=== PATIENT | female | born 1965 | race Caucasian/White ===

== ENCOUNTER 2018-02-28 01:04 | Outpatient (CLI) | payer BC, SELFPAY ==
--- NOTE | 2018-02-28 12:43 | DI.MAMMO_ITS ---
SYMPTOMS/DIAGNOSIS: SCREENING, Z12.31, PREVENTATIVE CARE, Z00.00 MAMMOGRAM: Mammograms were interpreted according to the usual protocol including computer analysis with CAD system, tomosynthesis and C view imaging. The breast tissue is heterogeneously radiodense which lowers the sensitivity of the study. There is no dominant mass. There are no suspicious calcifications and a biopsy marker clip is identified in the superior portion of the right breast. SUMMARY: No evidence of malignancy, Category I, yearly screening mammography is recommended. Breast density Category C. SA ASSESSMENT OF FINDINGS: Negative. Category 1. Patient will receive a letter notifying them of these results. Bi-RADS category C. The breasts are heterogeneously dense, which may obscure small masses.
== END 2018-02-28 01:24 ==
PROVIDERS: PCP Family Medicine; Visit Provider Family Medicine
DX: Z00.00 Encounter for general adult medical examination without abnormal findings (principal); Z12.31 Encounter for screening mammogram for malignant neoplasm of breast
CPT/HCPCS: 77063; 77067

== ENCOUNTER 2018-04-10 08:28 | Outpatient (REF) | payer BC, SELFPAY ==
[2018-04-10 13:38] LABS: ALT 18 U/L (12-78); AST 17 U/L (15-37); Albumin 3.9 g/dL (3.4-5.0); Alkaline Phosphatase 65 U/L (46-116); Anion Gap 7.7 mmol/L (3-11); BUN 18 mg/dL (7-18); Bilirubin, Total 0.4 mg/dL (0.2-1.0); CO2 29.3 mmol/L (21.0-32.0); CREATININE 0.82 mg/dL (0.55-1.02); Calcium 9.6 mg/dL (8.5-10.1); Chloride 103 mmol/L (98-107); Cholesterol 221 mg/dL (50-200); Glucose 91 mg/dL (70-100); HDL Cholesterol 65 mg/dL (40-60); LDL CHOLESTEROL 139 mg/dL (<100); Potassium 4.7 mmol/L (3.5-5.1); Sodium 140 mmol/L (136-145); TSH (W/Ref FT4) 3.99 uIU/mL (0.358-3.74); Total Protein 7.1 g/dL (6.4-8.2); Triglyceride 62 mg/dL (30-150)
[2018-04-10 13:57] LABS: FREE T4 0.97 ng/dL (0.76-1.46)
== END 2018-04-10 08:48 ==
LOC: NCHCN 08:28
PROVIDERS: PCP Family Medicine; Visit Provider Family Medicine
DX: Z00.00 Encounter for general adult medical examination without abnormal findings (principal); Z13.29 Encounter for screening for other suspected endocrine disorder; Z13.228 Encounter for screening for other metabolic disorders; Z13.220 Encounter for screening for lipoid disorders
CPT/HCPCS: 80053; 80061; 83721; 84439; 84443

== ENCOUNTER 2018-06-25 06:18 | Day surgery (SDC) | payer BC, SELFPAY ==
--- NOTE | 2018-06-25 06:00 | W.COLOREPORT ---
Date of service: 06/25/18 Time of Service: 07:25 Colonoscopy Report Date of procedure: 06/25/18 Pre-op diagnosis general: Colon Cancer Screening Post-op diagnosis procedure note: other (colorectal polyps) Procedure: Colonoscopy with polypectomy by cold forceps Surgeon: Meri Hartmann Anesthesia proc note operative: MAC (Jessy Burgess, AARTI/ ASA 2) Estimated blood loss (mL): 3 Pathology: other (descending polyp at 25cm, rectal polyp) Complications: None Disposition: same day Indications: Mrs. Ruiz is a pleasant 53 year old female who was seen in the office for a screening colonoscopy. She had a colonoscopy in 2008 that was normal. Risks, benefits and complications have been reviewed. Complications include but are not limited to bleeding, pain, perforation, missed small lesion/polyp, sore throat, aspiration and adverse reaction to the medications. Questions were entertained and answered to their satisfaction and they wished to proceed. No guarantees were given or implied. Prep: Miralax/Dulcolax Procedure Start Time: :25 Procedure End Time: :52 Retraction Time: 20 minutes Findings: 2 sessile polyps identified Procedure Description: After informed consent was obtained the patient was taken to the procedure room and placed in a left decubitous position. Monitors were applied and a time out was done. The patients name, date of , procedure, allergies to medications and metal in their body was reviewed. The patient was then sedated. Once sedated and comfortable a rectal exam was done. External exam was normal. Internal exam revealed a normal sphincter tone and no palpable masses. The scope was then introduced and retro-flexed. No internal hemorrhoids were identified. The scope was then advanced to the cecum without difficulty. The TI and appendiceal orifice were identified. The prep was good. The scope was then slowly retracted over 20 minutes back into the rectum. Polyps were removed in the descending colon at 25 cm and in the sigmoid colon with cold forceps. The scope was removed and the patient was woken up and taken back to Same day surgery in stable condition. The patient tolerated the procedure well and there were no immediate complications. Follow up: The patient should follow up in 3-5 years unless they develop changes in bowel habits or other new gastrointestinal complaints.
--- NOTE | 2018-06-25 06:01 | W.PM.DSUDISC ---
Discharge Plan Disposition Patient Disposition: HOME Condition: Good Discharge Details Reason For Visit: Colon Cancer Screening Attending Provider: Meri Hartmann Primary Care Provider: Savana Oakes Home Meds and New Rx's Prescriptions: Discontinued polyethylene glycol 3350 17 gram/dose powder 255 g PO ONCE Qty: 255 RF: 0 bisacodyl [Dulcolax (bisacodyl)] 5 mg tablet,delayed release (DR/EC) 5 mg PO ONCE Qty: 4 RF: 0 Discharge Instructions Instructions: Colonoscopy (DC), Colorectal Polyps (DC) Additional Instructions: Findings: 2 polyps Follow up: 3-5 years Please call if you develop: fevers >101.5 Nausea or Vomiting Abdominal pain that is not transient DAY SURGERY UNIT POST COLONOSCOPY INSTRUCTIONS 1. Because there will be medication in your system for the next 24 hours, you may feel a little sleepy. Your coordination will be affected. Therefore: a. Do not drive or operate dangerous equipment for 24 hours. b. Do not drink alcohol beverages for 24 hours (not even beer). c. Plan to go home and rest for the day. 2. Generally there are no restrictions on your activity after a day or so has gone by, but you may feel a bit fatigued for a few days. 3 After you arrive home you may have a light meal and return to a normal diet as you can tolerate it without feeling sick to your stomach. 4. After surgery, you may feel pain or discomfort. This should be only transient, but if it persists please contact your doctor. 5. If there are any questions regarding the findings of your procedure, please feel free to contact your doctor. 6. If you are unable to contact your doctor with a problem, contact the hospital at [phone]. 7. Continue all your regular medications unless directed otherwise. I understand the above instructions and have no questions. Signature of Patient or Responsible Adult Escort Date/Time Name of Responsible Adult Escort Signature of Nurse Date/Time Stand Alone Forms: Anthony Alonso (DSU) Activity:: Activity as Tolerated Diet:: As Tolerated Discharge Orders Discharge Orders: Discharge Order (Routine); Ordered 06/25/18 Ordered By: Meri Hartmann DS: Diagnosis Discharge Diagnosis (1) S/P colonoscopy: Status: Acute (2) Colorectal polyps: Status: Acute
--- NOTE | 2018-06-25 06:03 | HPE_ITS ---
Date of service: 06/25/18 Time of Service: 06:30 Assessment and Plan (1) Encounter for screening colonoscopy: Current visit: No Status: Acute P\\ Colonoscopy under sedation Risks, benefits and complications have been reviewed. Complications include but are not limited to bleeding, pain, perforation, missed small lesion/polyp, sore throat, aspiration and adverse reaction to the medications. Questions were entertained and answered to their satisfaction and they wished to proceed. No guarantees were given or implied. History of Present Illness Narrative: 53 y/o female with history of constipation and hypothyrodism presents for colonoscopy screening pre-op. Her last screening was in 2008, which was remarkable for diverticula. She denies a family history of colon cancer. She denies changes in her bowel habits stating that she has always had hard stools with intermittent constipation with tenesmus. In the past, she thought she may have hemorrhoids. Denies bloody or black tarry stools, abdominal pain, diarrhea or constipation. She denies constitutional symptoms. Denies use of marijuana or any other recreational or illegal drugs. She denies chest pain, palpitations, dyspnea or dyspnea with exertion. She denies prior history or family history of adverse reactions or complications with anesthesia. No changes in her health since she was last seen in the office. Review of Systems Constitutional Denies fever(s) Cardiovascular Denies chest pain, Denies chest pain at rest, Denies rapid heart rate, Denies irregular heart rhythm, Denies palpitations, Denies dyspnea and Denies dyspnea on exertion Respiratory Denies cough, Denies dyspnea and Denies dyspnea on exertion Endocrine Denies palpitations [facility] Medical History Tobacco abuse (Chronic) Hypothyroidism (Chronic) Fatigue (Chronic) Constipation (Chronic) Surgical History S/P colonoscopy (Acute ~06/25/18) H/O colonoscopy (Resolved 05/28/08) Social History Smoking and Tabacco status: Current every day alcohol intake: current alcohol intake frequency: a few times a week Alcohol type: wine and hard liquor substance use type: does not use Meds Home Medications Medication Instructions Recorded Confirmed Type bisacodyl 5 mg tablet,delayed 5 mg PO ONCE #4 tab 05/24/18 06/25/18 Rx release polyethylene glycol 3350 17 255 g PO ONCE #255 gm 05/24/18 06/25/18 Rx gram/dose oral powder Allergies Allergy/AdvReac Type Severity Reaction Status Date / Time No Known Allergies Allergy Verified 06/25/18 06:30 Exam Resp Effort & Inspection: normal respiratory effort Auscultation: clear to auscultation bilaterally Cardio Palpation: normal PMI Rate: regular rate Rhythm: regular rhythm Heart Sounds: no click, no gallops and no murmurs
[2018-06-25 06:25] VITALS: BP 120/81; PULSE 91; RESP 16; TEMP 36.9; O2SAT 95
[2018-06-25] MEDS: Lactated Ringers 1,000 ML 80 ML IV (06:47)
--- NOTE | 2018-06-25 07:45 | BOWEL_PTH ---
PATIENT: Denisse Ruiz LOC: [facility] U#:[id number] AGE/SX: 53/F ROOM: RE06/25/[address]: Meri Hartmann MD : 1965 BED: DIS: 06/25/2018 SPEC #: [id number] RECD: 06/25/18 12:38 STATUS: OSCAR REQ #: [id number] STEVEN: 06/25/18 07:[address]: Meri Hartmann DEPT: Surgical Specimen RECD BY: Ellyn Whittington ENTERED: 06/25/18 12:40 SP TYPE: Bowel OTHR DR: Savana Oakes Tissues: 1 - BIOPSY BOWEL 2 - BIOPSY BOWEL Procedures: GROSS AND MICRO LEVEL 4 Comments: [id number]
[2018-06-25 08:41] VITALS: BP 142/93; PULSE 56; RESP 18; TEMP 36.1; O2SAT 99
== END 2018-06-25 09:27 | disposition home or self-care (01) ==
LOC: SUR 06:18
PROVIDERS: PCP Family Medicine; Visit Provider Surgery
PROC: 0DJD8ZZ Inspection of Lower Intestinal Tract, Via Natural or Artificial Opening Endoscopic (ICD-10-PCS; CPT 45378; principal; 2018-06-25 07:30)
DX: Z12.11 Encounter for screening for malignant neoplasm of colon (principal); D12.4 Benign neoplasm of descending colon; K63.5 Polyp of colon; F17.210 Nicotine dependence, cigarettes, uncomplicated
CPT/HCPCS: 45380; 88305; NC

== ENCOUNTER 2019-04-15 16:05 | Outpatient (REF) | payer BC, SELFPAY ==
[2019-04-15 21:13] LABS: ALT 20 U/L (14-59); AST 16 U/L (15-37); Albumin 4.3 g/dL (3.4-5.0); Alkaline Phosphatase 92 U/L (46-116); Anion Gap 9.3 mmol/L (3-11); BUN 17 mg/dL (7-18); Bilirubin, Total 0.3 mg/dL (0.2-1.0); CO2 29.7 mmol/L (21.0-32.0); Calcium 9.7 mg/dL (8.5-10.1); Calculated LDL 136 mg/dL; Chloride 103 mmol/L (98-107); Cholesterol 236 mg/dL (<200); Estimated GFR 58.22 (mL/min/1.73m2); Glucose 112 mg/dL (74-106); HDL Cholesterol 78 mg/dL (40-60); Potassium 3.7 mmol/L (3.5-5.1); Sodium 142 mmol/L (136-145); Total Protein 7.9 g/dL (6.4-8.2); Triglyceride 111 mg/dL (<150)
[2019-04-15 21:28] LABS: HGB 14.7 g/dL (12.0-15.5); Mean Corp. HGB Concentration 33.4 g/dL (32.0-36.0); Mean Corpuscular Hemoglobin 31.5 pg (27.0-33.0); Mean Corpuscular Volume 94.2 fL (80-95); Mean Platelet Volume 10.6 fL (8.0-11.0); Platelet Count 284 x1000/uL (130-400); RBC 4.67 m/cumm (4.00-5.20); RBC Distribution Width 13.3 % (11.7-14.6)
== END 2019-04-15 16:25 ==
LOC: NCHCN 16:05
PROVIDERS: PCP Family Medicine; Visit Provider Family Medicine
DX: R10.9 Unspecified abdominal pain (principal)
CPT/HCPCS: 80053; 80061; 85027

== ENCOUNTER 2019-05-21 01:21 | Outpatient (CLI) | payer BC, SELFPAY ==
--- NOTE | 2019-05-21 12:59 | DI.MAMMO_ITS ---
EXAM: MAMMO SCREENING CLINICAL HISTORY: SCREENING, Z12.31 TECHNIQUE: Mammograms were interpreted according to the usual protocol including computer analysis w [employer] CAD system, tomosynthesis and C-view imaging. COMPARISON: [id number] FINDINGS: The breasts are composed of heterogeneously dense fibroglandular densities, Breast Density category C . No suspicious masses or suspicious microcalcifications are seen. No skin thickening or abnormal axillary lymph nodes are seen. There has been no significant change from prior exams. IMPRESSION: BIRADS Category 1, negative mammogram. Yearly screening mammography is recommended. BI-RADS Cat 1 - Negative Breast Density - Category B - Scattered areas of fibroglandular densityBreast Density - Category C - Heterogeneously dense BREAST DENSITY: The mammogram demonstrates the patient's breast tissue is dense. Dense breast tissue is very common and is not abnormal but dense breast tissue can make it harder to find cancer on a ma mmogram. Also, dense breast tissue may increase their breast cancer risk. This information about the result of the mammogram report was provided to the patient to raise their awareness. Use this report when you speak with the patient about their risks for breast cancer, which includes their family hist ory. At that time, you may recommend for more screening tests (Ultrasound or MRI) as they might be us eful based on their risk. A negative radiographic report should not delay biopsy if a dominant or clinically suspicious mass is present. Up to ten percent of cancers are not identified on mammography. A negative report may reinforce clinical impression. Adenosis and dense breasts may obscure an underlying neoplasm. False positive reports average 6 to 10%.
== END 2019-05-21 01:41 ==
PROVIDERS: PCP Family Medicine; Visit Provider Family Medicine
DX: Z12.31 Encounter for screening mammogram for malignant neoplasm of breast (principal)
CPT/HCPCS: 77063; 77067

== ENCOUNTER 2020-04-16 16:16 | Outpatient (REF) | payer BC, SELFPAY ==
--- NOTE | 2020-04-16 15:30 | PAPFT_PTH ---
PATIENT: Denisse Ruiz LOC: [facility] U#:[id number] AGE/SX: 55/F ROOM: RE04/16/[address]: Savana Oakes : 1965 BED: DIS: 04/16/2020 SPEC #: [id number] RECD: 04/17/20 12:45 STATUS: OSCAR REMartha #: [id number] STEVEN: 04/16/20 15:[address]: Savana Oakes DEPT: [facility], [facility] Cytology RECD BY: Ellyn Whittington Tissues: 1 - CX/ENDOCX FOR PAP SMEARS Procedures: PAP THIN PREP/UVM Screening Comments: [id number]
== END 2020-04-16 16:36 ==
LOC: NCHCN 16:16
PROVIDERS: PCP Family Medicine; Visit Provider Family Medicine
DX: Z12.4 Encounter for screening for malignant neoplasm of cervix (principal); R87.613 High grade squamous intraepithelial lesion on cytologic smear of cervix (HGSIL)
CPT/HCPCS: 88142

== ENCOUNTER 2020-05-18 09:04 | Outpatient (REF) | payer BC, SELFPAY ==
--- NOTE | 2020-05-18 08:30 | CER_PTH ---
PATIENT: Denisse Ruiz LOC: [facility] U#:[id number] AGE/SX: 55/F ROOM: RE05/18/[address]: Cecile Vogel DO : 1965 BED: DIS: 05/18/2020 SPEC #: [id number] RECD: 05/18/20 12:42 STATUS: OSCAR REQ #: [id number] STEVEN: 05/18/20 08:[address]: Cecile Vogel DEPT: Surgical Specimen RECD BY: Ellyn Whittington ENTERED: 05/18/20 12:44 SP TYPE: CER OTHR DR: Savana Oakes Tissues: 1 - CERVICAL BIOPSY 2 - ENDOCERVICAL BX/CURRETTE Procedures: GROSS AND MICRO LEVEL 4 Comments: [id number]
== END 2020-05-18 09:24 ==
LOC: LBN 09:04
PROVIDERS: PCP Family Medicine; Visit Provider Obstetrics & Gynecology
DX: N88.8 Other specified noninflammatory disorders of cervix uteri (principal); R87.613 High grade squamous intraepithelial lesion on cytologic smear of cervix (HGSIL)
CPT/HCPCS: 88305

== ENCOUNTER 2020-05-26 01:01 | Outpatient (CLI) | payer BC, SELFPAY ==
--- NOTE | 2020-05-26 12:20 | DI.MAMMO_ITS ---
EXAM: MAMMO SCREENING CLINICAL HISTORY: SCREENING, Z12.31 TECHNIQUE: Mammograms were interpreted according to the usual protocol including computer analysis w [employer] CAD system, tomosynthesis and C-view imaging. COMPARISON: 2012 through 2019 FINDINGS: The breasts are composed of heterogeneously dense fibroglandular densities, Breast Density category C . No suspicious masses or suspicious microcalcifications are seen. No skin thickening or abnormal axillary lymph nodes are seen. A biopsy marker clip is again noted in the superior right breast. There has been no significant change from prior exams. IMPRESSION: BI-RADS Category 1, Negative mammogram. Yearly screening mammography is recommended. Breast Density Category C, heterogeneously Dense. The mammogram demonstrates the patient's breast tissue is dense. Dense breast tissue is very common a nd is not abnormal but dense breast tissue can make it harder to find cancer on a mammogram. Also, de nse breast tissue may increase breast cancer risk. This information about the result of the mammogram report was provided to the patient to raise their awareness. Use this report when you speak with the patient about their risks for breast cancer, which includes their family history. At that time, you may recommend additional screening tests (Ultrasound or MRI) as they might be useful based on their r isk. A negative radiographic report should not delay biopsy if a dominant or clinically suspicious mass is present. Up to ten percent of cancers are not identified on mammography. A negative report may reinforce clinical impression. Adenosis and dense breasts may obscure an underlying neoplasm. False positive reports average 6 to 10%.
== END 2020-05-26 01:21 ==
PROVIDERS: PCP Family Medicine; Visit Provider Family Medicine
DX: Z12.31 Encounter for screening mammogram for malignant neoplasm of breast (principal)
CPT/HCPCS: 77063; 77067

== ENCOUNTER 2020-11-09 08:41 | Outpatient (REF) | payer BC, SELFPAY ==
--- NOTE | 2020-11-09 08:30 | PAPFT_PTH ---
PATIENT: Denisse Ruiz LOC: [facility] U#:[id number] AGE/SX: 55/F ROOM: RE11/09/[address]: Cecile Vogel DO : 1965 BED: DIS: 11/09/2020 SPEC #: [id number] RECD: 11/09/20 13:13 STATUS: OSCAR REQ #: [id number] STEVEN: 11/09/20 08:[address]: Cecile Vogel DEPT: [facility] Cytology RECD BY: Ellyn Whittington ENTERED: 11/09/20 13:13 SP TYPE: PAPFT OTHR DR: Savana Oakes Tissues: 1 - CX/ENDOCX FOR PAP SMEARS Procedures: PAP THIN PREP/UVM Screening HPV DNA PROBE Comments: [id number]
--- NOTE | 2020-11-09 08:30 | ENDO_PTH ---
PATIENT: Denisse Ruiz LOC: [facility] U#:[id number] AGE/SX: 55/F ROOM: RE11/09/[address]: Cecile Vogel DO : 1965 BED: DIS: 11/09/2020 SPEC #: [id number] RECD: 11/09/20 12:55 STATUS: OSCAR REQ #: [id number] STEVEN: 11/09/20 08:[address]: Cecile Vogel DEPT: Surgical Specimen RECD BY: Ellyn Whittington ENTERED: 11/09/20 12:56 SP TYPE: Endo OTHR DR: Savana Oakes Tissues: 1 - ENDOCERVICAL BX/CURRETTE Procedures: GROSS AND MICRO LEVEL 4 Comments: [id number]
== END 2020-11-09 08:42 | disposition home or self-care (01) ==
LOC: LBN 08:41
PROVIDERS: PCP Family Medicine; Visit Provider Obstetrics & Gynecology
DX: N88.8 Other specified noninflammatory disorders of cervix uteri (principal); R87.810 Cervical high risk human papillomavirus (HPV) DNA test positive; R87.613 High grade squamous intraepithelial lesion on cytologic smear of cervix (HGSIL); Z12.4 Encounter for screening for malignant neoplasm of cervix
CPT/HCPCS: 88142; 88305; 87624

== ENCOUNTER 2022-02-04 13:04 | Outpatient (REF) | payer BC, SELFPAY ==
--- NOTE | 2022-02-04 11:10 | PAPFT_PTH ---
PATIENT: Denisse Ruiz LOC: [facility] U#:[id number] AGE/SX: 57/F ROOM: RE02/04/[address]: Cecile Vogel DO : 1965 BED: DIS: 02/04/2022 SPEC #: [id number] RECD: 02/04/22 13:18 STATUS: OSCAR REQ #: [id number] STEVEN: 02/04/22 11:[address]: Cecile Vogel DEPT: [facility] Cytology RECD BY: Ellyn Whittington ENTERED: 02/04/22 13:18 SP TYPE: PAPFT OTHR DR: Savana Oakes Tissues: 1 - CX/ENDOCX FOR PAP SMEARS Procedures: PAP THIN PREP/UVM Screening HPV DNA PROBE Comments: [id number]
== END 2022-02-04 13:05 | disposition home or self-care (01) ==
LOC: LBN 13:04
PROVIDERS: PCP Family Medicine; Visit Provider Obstetrics & Gynecology
DX: Z12.4 Encounter for screening for malignant neoplasm of cervix (principal); Z11.51 Encounter for screening for human papillomavirus (HPV)
CPT/HCPCS: 88142; 87624

== ENCOUNTER 2022-05-27 00:27 | Outpatient (CLI) | payer BC, SELFPAY ==
--- NOTE | 2022-05-27 11:45 | DI.MAMMO_ITS ---
Exam(s) MAMMO SCREENING EXAM: MAMMO SCREENING CLINICAL HISTORY: screening TECHNIQUE: Bilateral full field digital CC and MLO mammographic images were obtained with 3D tomosyn thesis and utilizing computer aided detection (CAD). COMPARISON: Available for comparison. FINDINGS: Masses/Architectural Distortion: None seen. Microcalcifications: No suspicious pleomorphic-type are seen. Skin Thickening/Nipple Retraction: None. IMPRESSION: 1. No significant interval change with no specific features of malignancy noted. 2. Unless there is more urgent need, screening mammography is recommended, as per [employer] guidelines. BI-RADS Category 1 - Negative Breast Density - Category C - Heterogeneously dense Breast density category C or D implies that the patient has dense breast tissue. Dense breast tissue is very common and is not abnormal but dense breast tissue can make it harder to find cancer on a ma mmogram. Also, dense breast tissue may increase their breast cancer risk. This information about the result of the mammogram report was provided to the patient to raise their awareness. Use this report when you speak with the patient about their risks for breast cancer, which includes their family hist ory. At that time, you may recommend for more screening tests (Ultrasound or MRI) as they might be us eful based on their risk. A negative radiographic report should not delay biopsy if a dominant or clinically suspicious mass is present. Up to ten percent of cancers are not identified on mammography. A negative report may reinforce clinical impression. Adenosis and dense breasts may obscure an underlying neoplasm. False positive reports average 6 to 10%. Patient will receive a letter notifying them of these results.
== END 2022-05-27 00:47 ==
LOC: DI 00:28
PROVIDERS: PCP Family Medicine; Visit Provider Obstetrics & Gynecology
DX: Z12.31 Encounter for screening mammogram for malignant neoplasm of breast (principal); R92.8 Other abnormal and inconclusive findings on diagnostic imaging of breast
CPT/HCPCS: 77063; 77067

== ENCOUNTER 2022-11-08 11:25 | Outpatient (REF) | payer BC, SELFPAY ==
[2022-11-08 22:22] LABS: ALT 24 U/L (14-59); AST 18 U/L (15-37); Albumin 3.9 g/dL (3.4-5.0); Alkaline Phosphatase 75 U/L (46-116); Anion Gap 8.7 mmol/L (3-11); BUN 17 mg/dL (7-18); Bilirubin, Total 0.4 mg/dL (0.2-1.0); CO2 29.3 mmol/L (21.0-32.0); CREATININE 0.8 mg/dL (0.55-1.02); Calcium 9.3 mg/dL (8.5-10.1); Calculated LDL 107 mg/dL (<100); Chloride 105 mmol/L (98-107); Cholesterol 176 mg/dL (<200); Estimated GFR 86.96 (mL/min/1.73m2); Glucose 99 mg/dL (74-106); HDL Cholesterol 56 mg/dL (40-60); Potassium 5.1 mmol/L (3.5-5.1); Sodium 143 mmol/L (136-145); Total Protein 7.1 g/dL (6.4-8.2); Triglyceride 68 mg/dL (<150)
[2022-11-08 22:44] LABS: Vitamin D 25 Total 35.6 ng/mL (30-100)
== END 2022-11-08 11:26 | disposition home or self-care (01) ==
LOC: NCHCN 11:25
PROVIDERS: PCP Family Medicine; Visit Provider Family Medicine
DX: Z00.00 Encounter for general adult medical examination without abnormal findings (principal)
CPT/HCPCS: 80053; 80061; 82306

== ENCOUNTER → 2023-01-04 01:52 | Outpatient (CLI) | payer BC, SELFPAY ==
--- NOTE | 2023-01-04 | DI.US_ITS ---
APPROVED REPORT EXAM: Comprehensive 2D, Doppler, and color-flow Echocardiogram Patient Location: Out-Patient Diving Judge: Rhea Marti RDCS (AE) Indications: Heart Murmur Other Information Study Quality: Good Conclusion Normal left ventricular wall thickness and chamber size. Ejection fraction is 60 to 65%. Wall motio n is normal Normal right ventricular size and systolic function Both atria are normal in size Aortic valve is trileaflet and sclerotic with mild regurgitation. There is no aortic stenosis Wall motion Left Ventricle The left ventricle is normal size. The left ventricular systolic function is normal. The left ventric ular ejection fraction is within the normal range. There is normal left ventricular wall thickness. T here is normal LV segmental wall motion. There is no ventricular septal defect visualized. LVEF is 60 -65%. Right Ventricle The right ventricle is normal size. The right ventricular systolic function is normal. Atria The left atrium size is normal. The right atrium size is normal. The interatrial septum is intact wit h no evidence for an atrial septal defect. Aortic Valve The Aortic valve is sclerotic. There is no aortic valvular stenosis. Mild aortic regurgitation. Mitral Valve The mitral valve is normal in structure. No evidence of mitral valve stenosis. Trace mitral regurgita tion. Tricuspid Valve The tricuspid valve is normal in structure. There is no tricuspid valve stenosis. Trace to mild tricu spid regurgitation. The RVSP is 22.7 mmHg. Pulmonic Valve The pulmonary valve is normal in structure. There is no pulmonic valvular stenosis. There is no pulmo ashanti valvular regurgitation. Great Vessels The aortic root is normal in size. The ascending aorta is normal in size. Aortic arch is normal in ca liber. IVC is normal in size and collapses >50% with inspiration. Pericardium There is no pericardial effusion. 2D Dimensions IVSD d PLAX 0.99 cm F: 0.6-1.0 LVPW d PLAX 0.85 cm F: 0.6 - 1.0 LVID d PLAX 4.46 cm F: 3.8 - 5.2 LVDs 2.85 cm F: 2.2 - 3.5 Ao Root d 2.35 cm F: 2.7 - 3.3 RA Area A4C 9.17 cm2 Ao Asc Diam d 2.85 cm F: 2.3 - 3.1 LV EF Teichholz 64.8 % FS 35.20 % M-Mode TAPSE 2.41 cm (M/F) >1.7 LV Diastology MV E' medial 0.100 (>0.07 m/s) E/A Ratio 1.3 LV E/e MED 8.87 (<14) MV E Vmax 0.89 (0.4-1.3 m/s) MV E' lateral 0.108 (>0.1 m/s) MV A Vmax 0.70 (0.4-1.3 m/s) LV E/e LAT 8.21 (<14) MV E/E' medial 8.87 MV E/E' lateral 8.21 MV (E/E' average) 8.53 Aortic Valve LVOT Vmax 1.32 m/s AoV Area Vmax 1.97 cm2 LVOT Peak Grad 7.0 mmHg AR Vmax 4.75 m/s LVOT Mean Grad 4.3 mmHg AR DT 1849 msec LVOT Diam s 1.95 cm AR PHT 536 msec AoV Vmax 2.05 m/s AV Regurg Peak Gr. 90.10 mmHg Velocity Ratio 0.64 AoV Peak Grad 90.1 mmHg LVOT SV 91.46 mL AoV Mean Grad 8.9 mmHg AoV Area VTI 1.96 cm2 Mitral Valve MV DT 210 (160-240 msec) MV Vmax TIPS 0.75 m/s MV Mean Grad 1.0 (<2mmHg) MV VTI 0.265 m Pulmonary Valve PV Mean Grad 1.5 mmHg RVOT Peak Gr. 1.79 mmHg RVOT Mean Gr. 1.05 mmHg RVOT VTI 0.147 m RVOT Vmax 0.67 m/s Tricuspid Valve TR Peak Grad 19.7 mmHg TR Vmax 2.22 m/s RA Pressure 3.00 mmHg RVSP (TR) 22.7 mmHg
== END ==
PROVIDERS: PCP Family Medicine; Visit Provider Family Medicine
DX: R01.1 Cardiac murmur, unspecified (principal)
CPT/HCPCS: 93306

== ENCOUNTER 2023-02-09 09:08 | Day surgery (SDC) | payer BC, SELFPAY ==
--- NOTE | 2023-02-08 20:38 | W.PM.DSUDISC ---
Date of service: 02/09/23 Time of Service: 11:24 Discharge Plan Disposition Patient Disposition: Home Condition: Good Discharge Details Reason For Visit: screening colonoscopy Attending Provider: Jitendra Elliott Primary Care Provider: Savana Oakes Home Meds and New Rx's Prescriptions: Continued mometasone 0.1 % cream 1 applic topical DAILY Discontinued bisacodyl [Dulcolax (bisacodyl)] 5 mg tablet,delayed release (DR/EC) 5 mg PO ONCE Qty: 4 0RF Rx Instructions: Colonoscopy Bowel Prep- Per Instructions polyethylene glycol 3350 17 gram/dose powder 238 g PO ONCE Qty: 238 0RF Rx Instructions: Colonoscopy Bowel Prep- Per Instructions Discharge Instructions Instructions: Colorectal Polyps (GEN) Additional Instructions: Denisse, we were able to finish your colonoscopy today without much difficulty. I did find 2 small polyps in your rectum. I removed these completely. It will take a week or 2 for me to get the results from the polypectomy pathology. At that point, I will be in touch with my final recommendations regarding your next colonoscopy. If you have any questions in the meantime, please do not hesitate to call. 1. If tolerated, consume a soft, low fiber diet for 1-2 days. 2. Do not drive, drink alcohol, operate machinery, make critical decisions, or do activities that require coordination or balance for 24 hours. 3. Because air was put into your colon during the procedure, expelling air from your rectum (passing gas or farting) is normal. 4. You may not have a bowel movement for 1-3 days because of the colonoscopy prep. This is normal. 5. Go directly to the emergency room if you notice any of the following: Develop chills (warm to touch), or if you have a thermometer and your temperature is above 101 Difficulty breathing or difficultly swallowing Persistent vomiting Severe abdominal pain, other than gas cramps Severe chest pain Black, tarry stools Any bleeding ? exceeding one tablespoon 6. Call your physician if the site where your intravenous was started becomes red, swollen, painful, and warm to touch. 7. Your physician has reviewed your pre-procedure medications. Please continue to take those medications as previously ordered. You will be given specific information/education regarding any changes to your medications before leaving. Activity:: Activity as Tolerated Diet:: As Tolerated Discharge Orders Discharge Orders: Discharge Order (Routine); Ordered 02/08/23 Ordered By: Jitendra Elliott DS: Diagnosis Discharge Diagnosis (1) Screen for colon cancer: Status: Acute Asessment and Plan: Follow-up on polyp results
--- NOTE | 2023-02-08 20:40 | W.COLOREPORT ---
Date of service: 02/09/23 Time of Service: 11:25 Colonoscopy Report Date of procedure: 02/09/23 Pre-op diagnosis general: screening colonoscopy Post-op diagnosis procedure note: other (Rectal polyps) Procedure: colonoscopy with polypectomy Surgeon: Jitendra Elliott Anesthesia Type: General:No Airway Estimated blood loss (mL): 5 Pathology: other (0.25 cm rectal polyp x2) Complications: None Disposition: same day Indications: Denisse is 58 years old with a personal history of sessile serrated ademona. She needs her next screening colonoscopy Prep: Miralax/Dulcolax Procedure Start Time: 10:41 Procedure End Time: 11:15 Retraction Time: 26 Findings: 0.25 cm rectal polyps x2 Procedure Description: After the induction of monitored anesthetic care, and with the patient in left lateral decubitus position, I began by performing an external anorectal exam.? Perineum and skin were normal, as was the anal verge.? There was no evidence of external hemorrhoids.? Next, I performed a digital rectal exam.? I did not appreciate any abnormal findings.? Next, I advanced a colonoscope into the rectal vault.? I performed retroflexion.? This appeared normal.? Using insufflation, I then advanced the colonoscope beyond the rectal folds and into the sigmoid colon before advancing towards the cecum.? The quality of the prep was adequate, but there was a fair amount of retained solid food product that required irrigation.? The scope was noted to be in the cecum by identification of the ileocecal valve and appendiceal orifice.? I then began withdrawing the colonoscope using repeated irrigation as necessary for full evaluation of the colonic mucosa. ?Once the scope was withdrawn to the level of the rectum, great care was taken to examine portions of the rectal folds. Within the upper portion of the rectal vault were 2 polyps. Each was less than 0.25 cm. Both were sessile. I removed both of these with cold forceps without any difficulty. There was minimal bleeding from the sites. Finally, the scope was withdrawn and the patient was brought to the same-day surgery recovery unit as the anesthetic wore off. ?The findings and instructions were shared with the patient prior to discharge.
[2023-02-09 09:31] VITALS: BP 115/93; PULSE 69; RESP 17; TEMP 36.7; O2SAT 99
[2023-02-09] MEDS: Lactated Ringers 1,000 ML 80 ML IV (09:44)
--- NOTE | 2023-02-09 10:24 | W.ANESPRE ---
General Info Date of Service Date Performed: 02/09/23 Height: 5 ft 3 in Weight: 70.6 kg Body Mass Index (BMI): 27.6 Surgical Procedure: Operation Date: 02/09/23 10:35 Proposed Procedure Side Surgeon p Colonoscopy Jitendra Elliott MD Meds Allergies and Home Medications Allergies Allergy/AdvReac Type Severity Reaction Status Date / Time No Known Allergies Allergy Verified 02/09/23 09:38 Home Medication Medication Instructions Recorded mometasone 0.1 % topical cream 1 applic topical DAILY 02/04/22 Current Visit Medications: Current Medications Generic Name Dose Route Start Last Admin Trade Name Freq PRN Reason Stop Dose Admin Hyoscyamine Sulfate 0.125 mg 02/08/23 20:45 Hyoscyamine 0.125 Mg Sl/Oral/Chew SL 03/10/23 20:44 DIRECTED PRN Ringer's Solution 1,000 mls @ 80 mls/hr 02/09/23 06:00 02/09/23 09:44 IV 02/09/23 23:59 80 mls/hr INFUSION MARGE Administration IV Miscellaneous Supplies 1 each 02/09/23 06:00 Iv Access IV 02/09/23 23:59 DIRECTED MARGE Ondansetron HCl 4 mg 02/08/23 20:45 Ondansetron 4 Mg/2 Ml Vial IVP 03/10/23 20:44 Q4H PRN PRN Nausea / Vomiting Sodium Chloride 0 ml 02/09/23 06:00 Normal Saline Flush 10 Ml Syr IV 02/09/23 23:59 PRN PRN Sodium Chloride 0 ml 02/09/23 06:00 Normal Saline 10 Ml Vial IJ 02/09/23 23:59 DIRECTED PRN Sterile Water 0 ml 02/09/23 06:00 Water,Injection,Sterile 10 Ml Vial IJ 02/09/23 23:59 DIRECTED PRN PFSH Active Problems Active Problems: Problem Status Onset Code Screen for colon cancer Z12.11 Eczema L30.9 HSIL (high grade squamous intraepithelial lesion) on Pap smear of cervix R87.613 Colorectal polyps ~06/25/18 K63.5 S/P colonoscopy ~06/25/18 Z98.890 Encounter for screening colonoscopy Z12.11 Menopausal symptoms 11/16/16 N95.1 PCB (post coital bleeding) 11/03/14 N93.0 Polymenorrhea 11/03/14 N92.0 Tobacco abuse Z72.0 Hypothyroidism E03.9 Fatigue R53.83 Constipation K59.00 Surgical History Surgical History H/O colonoscopy (06/2018) 06/2018-[facility], sessile serrated, hyperplastic 2008-w/ Dr Maza for constipation and heme positive stool at 43 yoa, normal, scattered colonic diverticula, repeat in ten years. Tobacco Smoking/Tobacco Use Status: Current every day Tobacco Type: cigarettes Smoking packs per day: 5 Smoking cigarettes per day: 5 Alcohol Alcohol Intake: current Alcohol intake frequency: a few times a week Alcohol type: wine Substance Use Substance use: Never Substance use type: does not use Vital Signs and Lab Results Vital Signs Most Recent Vital Signs in EMR: Most Recent Vital Signs Temp Pulse Resp BP Pulse Ox 36.7 C 69 17 115/93 H 99 02/09/23 09:31 02/09/23 09:31 02/09/23 09:31 02/09/23 09:31 02/09/23 09:31 Lab Results Blood Type / Crossmatch: No Data to Display Complete Blood Count: No Data to Display Complete Metabolic Panel: No Data to Display Liver Function Panel: No Data to Display Coagulation Panel: No Data to Display Cardiac Panel: No Data to Display Arterial Blood Gas: No Data to Display Venous Blood Gas: No Data to Display Pancreas Panel: No Data to Display Thyroid Panel: No Data to Display Infectious Disease: No Data to Display Blood Cultures: No Data to Display Toxicology Panel: No Data to Display Imaging and Studies Imaging and Studies Study information below may be from another EMR and interpreted by another provider. Please see original notes in EMR for more complete details. Echocardiogram Summary: Date of Exam: 01/04/23Sex: F Admission Date: 01/04/23 : 1965 Age: 57 APPROVED REPORT EXAM: Comprehensive 2D, Doppler, and color-flow Echocardiogram Patient Location: Out-Patient Outboard Motor Inspector: Rhea Marti RDCS (AE) Indications: Heart Murmur Other Information Study Quality: Good Conclusion Normal left ventricular wall thickness and chamber size. Ejection fraction is 60 to 65%. Wall motion is normal Normal right ventricular size and systolic function Both atria are normal in size Aortic valve is trileaflet and sclerotic with mild regurgitation. There is no aortic stenosis Anesthesia Assessment and Plan Anesthesia History Personal History: No History of Anesthesia Complications Family History: No Family History of Anesthesia Complications Exercise Tolerance Exercise Tolerance: Metabolic Equivalents>4 Pertinent Negatives Pertinent Negatives: No Symptoms of GERD and No Major Pulmonary Symptoms or Complaints Cardiac & Pulmonary Exam Cardiac Exam: Normal S1/S2 Heart Sounds Pulmonary Exam: Clear Bilateral Breath Sounds Implantable Cardiac Device Does patient have a Pacemaker or an ICD?: No Airway Exam Known Difficult Airway: No Mallampati Class: 1 Mouth Opening: Normal (> 3cm) Thyromental Distance: Greater than 3 cm Neck Range of Motion: Full ROM Neck Circumference: Normal Teeth Condition: Normal Dentition ASA Classification ASA Score: ASA 2 Emergency Case?: No NPO Status NPO Status: NPO Clears >2 hours, Solids >8 hours Anesthesia Plan Resuscitation Status: Full Code Anesthesia Technique: General Anesthesia Airway Planned: Natural Airway Monitors Used: Standard Monitors
[2023-02-09 10:30] VITALS: BMI 27.6
--- NOTE | 2023-02-09 11:13 | BOWEL_PTH ---
PATIENT: Denisse Ruiz LOC: [facility] U#:[id number] AGE/SX: 58/F ROOM: RE02/09/[address]: Jitendra Elliott MD : 1965 BED: DIS: 02/09/2023 SPEC #: [id number] RECD: 02/09/23 13:20 STATUS: OSCAR REQ #: [id number] STEVEN: 02/09/23 11:[address]: Jitendra Elliott DEPT: Surgical Specimen RECD BY: Ellyn Whittington ENTERED: 02/09/23 13:20 SP TYPE: Bowel OTHR DR: Savana Oakes Tissues: 1 - BIOPSY BOWEL Procedures: GROSS AND MICRO LEVEL 4 Comments: [id number]
[2023-02-09 11:19] VITALS: BP 109/57; PULSE 73; RESP 16; TEMP 36.4; O2SAT 98
[2023-02-09 11:46] VITALS: BP 115/91; PULSE 57; RESP 16; TEMP 36.5; O2SAT 100
--- NOTE | 2023-02-09 12:14 | W.ANESPOSTOP ---
Postoperative Evaluation Date, Time and Location Date Performed: 02/09/23 Time Performed: 11:30 Patient Location: Day Surgery Unit Vital Signs Most Recent Imported Vital Signs: Most Recent Vital Signs Temp Pulse Resp BP Pulse Ox 36.5 C 57 L 16 115/91 H 100 02/09/23 11:46 02/09/23 11:46 02/09/23 11:46 02/09/23 11:46 02/09/23 11:46 Pain Score Most Recent Pain Score: Most Recent Pain Score Pain Level 0 02/09/23 11:46 Assessment Mental Status: Awake (Alert & Oriented to Patient Baseline) Airway and Respiratory Function: Patent airway with normal (patient baseline) respiratory exam Cardiovascular Function: Hemodynamically Stable Hydration Status: Adequately Hydrated Nausea & Vomiting: No Nausea or Vomiting Pain: Pt. Denies Any Pain Peripheral Nerve Block: Patient did not receive a nerve block
== END 2023-02-09 11:58 | disposition home or self-care (01) ==
PROVIDERS: PCP Family Medicine; Visit Provider Surgery
PROC: 0DJD8ZZ Inspection of Lower Intestinal Tract, Via Natural or Artificial Opening Endoscopic (ICD-10-PCS; CPT 45378; principal; 2023-02-09 10:30)
DX: Z12.11 Encounter for screening for malignant neoplasm of colon (principal); Z86.010 Personal history of colon polyps; K62.1 Rectal polyp
CPT/HCPCS: 45380; 88305

== ENCOUNTER 2023-04-14 09:08 | Outpatient (REF) | payer BC, SELFPAY ==
--- NOTE | 2023-04-14 09:00 | PAPFT_PTH ---
PATIENT: Denisse Ruiz LOC: [facility] U#:[id number] AGE/SX: 58/F ROOM: RE04/14/[address]: Cecile Vogel DO : 1965 BED: DIS: 04/14/2023 SPEC #: [id number] RECD: 04/14/23 12:56 STATUS: OSCAR REQ #: [id number] STEVEN: 04/14/23 09:[address]: Cecile Vogel DEPT: [facility] Cytology RECD BY: Ellyn Whittington ENTERED: 04/14/23 12:56 SP TYPE: PAPFT OTHR DR: Savana Oakes Tissues: 1 - CX/ENDOCX FOR PAP SMEARS Procedures: PAP THIN PREP/UVM Screening HPV DNA PROBE Comments:
== END 2023-04-14 09:09 | disposition home or self-care (01) ==
LOC: LBN 09:08
PROVIDERS: PCP Family Medicine; Visit Provider Obstetrics & Gynecology
DX: Z12.4 Encounter for screening for malignant neoplasm of cervix (principal); Z72.51 High risk heterosexual behavior
CPT/HCPCS: 88142; 87624

== ENCOUNTER → 2023-05-31 01:40 | Outpatient (CLI) | payer OTHER, SELFPAY ==
--- NOTE | 2023-05-31 07:30 | DI.MAMMO_ITS ---
Exam(s) MAMMO SCREENING EXAM: MAMMO SCREENING CLINICAL HISTORY: screening,z12.39. TECHNIQUE: Bilateral full field digital CC and MLO mammographic images were obtained with 3D tomosyn thesis and utilizing computer aided detection (CAD). COMPARISON: Prior mammograms were reviewed. FINDINGS: Fibroglandular tissue pattern is again noted be moderately dense, this somewhat decreasing the sensit ivity of the mammogram for finding hidden underlying lesions. In the right breast there are no new findings in the immediate vicinity of the biopsy marker clip. N o new right breast findings. In the left breast retroareolar region there is an asymmetric nodular density measuring 10 by 6 mm, l ocated slightly over 1 cm in from the nipple. This is oval, well-defined, noncalcified. Spot compre ssion view and ultrasound recommended. There are no malignant-appearing microcalcification groups in either breast. There is no significant architectural distortion nor skin thickening-retraction. IMPRESSION: 1. No radiographic evidence of malignancy in the right breast. 2. Nodular density evident in the retroareolar region left breast seen best on MLO 3D imaging. Recom mend spot compression view and ultrasound exam. BI-RADS Category 0 - Assessment Incomplete: Need additional imaging evaluation Breast Density - Category C - Heterogeneously dense Breast density Category C or D implies that the patient has dense breast tissue. Dense breast tissue can make it harder to find cancer on a mammogram. Dense breast tissue is also associated with an incr eased risk of breast cancer. This information about the result of the mammogram report was provided to the patient to raise their awareness. Use this report when you speak with the patient about their risks for breast cancer, which includes their family history. At that time, you may recommend additional screening tests (Ultrasoun d or MRI) as these tests may add significant information. A negative radiographic report should not delay biopsy if a dominant or clinically suspicious mass is present. Up to ten percent of cancers are not identified on mammography. A negative report may reinforce clinical impression. Adenosis and dense breasts may obscure an underlying neoplasm. False positive reports average 6 to 10%. Patient will receive a letter notifying them of these results.
== END ==
PROVIDERS: PCP Family Medicine; Visit Provider Obstetrics & Gynecology
DX: Z12.31 Encounter for screening mammogram for malignant neoplasm of breast (principal); R92.8 Other abnormal and inconclusive findings on diagnostic imaging of breast
CPT/HCPCS: 77063; 77067

== ENCOUNTER → 2023-06-05 02:06 | Outpatient (CLI) | payer OTHER, SELFPAY ==
--- NOTE | 2023-06-05 | DI.US_ITS ---
Exam(s) MG MAMMO SCREEN CALL BACK UNI US BREAST LT LIMITED EXAM: MG MAMMO SCREEN CALL BACK UNI CLINICAL HISTORY: F/U MAMMO, NODULAR DENSITY RETROAREOLAR REGION LT BREAST. TECHNIQUE: Craniocaudal and mediolateral oblique spot compression digital Mammography views of the l eft breast followed by Tomosynthesis and left breast ultrasound. COMPARISON: US US BREAST LT LIMITED from 06/05/2023 FINDINGS: Mammography/Tomosynthesis: Masses/Architectural Distortion: Small circumscribed nodule in the subareolar region. No architectur al distortion. Microcalcifictions: No suspicious pleomorphic-type are seen. Skin Thickening/Nipple Retraction: None. Left breast US: Echotexture: Normal appearance of the glandular tissue. Shadowing: No suspicious foci. Cyst: 6 millimeter simple cyst region corresponding to mammographic abnormality. Solid lesions: None seen. Ductal dilation: None. IMPRESSION: 1. No evidence of malignancy is noted. 2. Unless there is more urgent need, follow-up screening mammography is recommended, as per [employer] guidelines. 3. The findings were discussed with the patient on the date of the examination. BI-RADS Category 2 - Benign Findings Breast Density - Category C - Heterogeneously dense A mammogram that demonstrates density of C or D indicates the patient's breast tissue is dense. Dense breast tissue is very common and is not abnormal, but dense breast tissue can make it harder to find cancer on a mammogram. Also, dense breast tissue may increase their breast cancer risk. This informa tion about the result of the mammogram report was provided to the patient to raise their awareness. U se this report when you speak with the patient about their risks for breast cancer, which includes th eir family history. At that time, you may recommend for more screening tests (Ultrasound or MRI) as t hey might be useful based on their risk. A negative radiographic report should not delay biopsy if a dominant or clinically suspicious mass is present. Up to ten percent of cancers are not identified on mammography. A negative report may reinforce clinical impression. Adenosis and dense breasts may obscure an underlying neoplasm. False positive reports average 6 to 10%. Patient will receive a letter notifying them of these results.
== END ==
PROVIDERS: PCP Family Medicine; Visit Provider Obstetrics & Gynecology
DX: Z12.31 Encounter for screening mammogram for malignant neoplasm of breast (principal); R92.8 Other abnormal and inconclusive findings on diagnostic imaging of breast
CPT/HCPCS: 76642; 77063; 77067

== ENCOUNTER 2023-11-15 16:28 | Outpatient (CLI) | payer OTHER, SELFPAY ==
[2023-11-15 08:32] LABS: ALT 21 U/L (14-59); AST 16 U/L (15-37); Albumin 3.8 g/dL (3.4-5.0); Alkaline Phosphatase 81 U/L (46-116); Anion Gap 8.3 mmol/L (3-11); BUN 19 mg/dL (7-18); Bilirubin, Total 0.45 mg/dL (0.2-1.0); CO2 28.7 mmol/L (21.0-32.0); CREATININE 0.8 mg/dL (0.55-1.02); Calcium 9.3 mg/dL (8.5-10.1); Calculated LDL 119 mg/dL (<100); Chloride 106 mmol/L (98-107); Cholesterol 210 mg/dL (<200); Estimated GFR 86.42 (mL/min/1.73m2); Glucose 96 mg/dL (74-106); HDL Cholesterol 81 mg/dL (40-60); Potassium 4.7 mmol/L (3.5-5.1); Sodium 143 mmol/L (136-145); Total Protein 7.3 g/dL (6.4-8.2); Triglyceride 50 mg/dL (<150); Vitamin D 25 Total 25.9 ng/mL (30-100)
== END 2023-11-15 16:29 | disposition home or self-care (01) ==
LOC: LBO 16:31
PROVIDERS: PCP Family Medicine; Visit Provider Family Medicine
DX: Z00.00 Encounter for general adult medical examination without abnormal findings (principal)
CPT/HCPCS: 36415; 80053; 80061; 82306

== ENCOUNTER 2024-04-15 08:58 | Outpatient (REF) | payer OTHER, SELFPAY ==
--- NOTE | 2024-04-15 08:20 | PAPFT_PTH ---
PATIENT: Denisse Ruiz LOC: [facility] U#:[id number] AGE/SX: 59/F ROOM: RE04/15/[address]: Cecile Vogel DO : 1965 BED: DIS: 04/15/2024 SPEC #: [id number] RECD: 04/15/24 13:18 STATUS: JODILucinda REQ #: [id number] STEVEN: 04/15/24 08:[address]: Cecile Vogel DEPT: [facility] Cytology RECD BY: Ellyn Whittington ENTERED: 04/15/24 13:18 SP TYPE: PAPFT OTHR DR: Savana Oaeks Tissues: 1 - CX/ENDOCX FOR PAP SMEARS Procedures: PAP THIN PREP/UVM Screening HPV DNA PROBE Comments: (HPV 16 & 18/45)
== END 2024-04-15 08:59 | disposition home or self-care (01) ==
LOC: LBN 08:58
PROVIDERS: PCP Family Medicine; Visit Provider Obstetrics & Gynecology
DX: Z12.39 Encounter for other screening for malignant neoplasm of breast (principal); Z01.419 Encounter for gynecological examination (general) (routine) without abnormal findings; R87.613 High grade squamous intraepithelial lesion on cytologic smear of cervix (HGSIL)
CPT/HCPCS: 88142; 87624

== ENCOUNTER 2024-06-07 00:42 | Outpatient (CLI) | payer OTHER, SELFPAY ==
--- OUTSIDE RECORDS SUMMARY | 2024-06-07 00:43 | XMS_ITS | Encounter Summary ---
Author Organization [facility] Address [address] [place] [address] Care Team Providers Care Butcher Fish Name Role Phone Akiko Benitez IVORY Primary Care Provider [phone] Encounter Details Date Type Department Care Team (Late st Contact Info) Description 11/13/2015 Results Only [facility] [phone] Mehdi Oakes MD [address] [place] [phone] Social History Tobacco Use Types Packs/Day Years Used Date Smoking Tobacco: Never Assessed Comments Unknown Sex and Gender Information Value Date Recorded Sex Assigned at Not on file Legal Sex Female 17:41 EST Gender Identity Not on file Sexual Orientation Not on file documented as of this encounter Plan of Treatment Not on file documented as of this encounter Procedures Procedure Name Priority Date/Time Associated Diagnosis Comments PAP TEST- RESULT ONLY Routine 11/13/2015 0:00 EDT documented in this encounter Results * PAP TEST- RESULT ONLY (11/13/2015 0:00 EDT) Pathology Report: CYTOPATHOLOGY REPORT Reports generated via electronic interface contain original data; however they are lacking the format of the original report. Caution should be taken when reading/interpreti ng unformatted reports. Name: ? RHONDACordellDENSISE ? Accession #: ? [id number] ? : ? 1965 (Age: 50) ??F ?Collect Date: ? 11/13/2015 ? Location: ? [facility] ? Receive Date: ? 11/18/2015 ? Provider: EMHDI OAKES MD Copy to: ? Final Report SPECIMEN ADEQUACY ? Satisfactory for Evaluation - transformation zone component present GENERAL CATEGORIZATION ? Negative for Intraepithelial Lesion or Malignancy INTERPRETATION ? Reactive cellular changes associated with inflammation present (includes repair). Last Menstrual Period: 08/2015 Hormonal/Contracep tive status: None Specimen/Source: ??Pap Test, Vagina/Cervix, ThinPrep Imaging System with manual evaluation Document reviewed and electronically signed by: ? LAKSHMI JOHNSON MD ? Report ??Date: 11/27/2015 13:02 HPV with Pap Test ? Date Ordered: ? 11/27/2015 ? Status: ?? Signed Out ?Date Complete: ? 12/01/2015 ? By: ??System Interface ? Date Reported: ? 12/01/2015 ? Interpretation RESULT: Negative for HPV. No E6 or E7 mRNA is detected from HPV types 16,18,31,33,35, 39,45,51,52,56,58, 59,66, and 68 by congressional assistant mediated amplification. Comments Document reviewed and electronically signed by: ? System Interface ? Report date: 12/01/2015 By the signature above, the attending physician certifies that he/she has personally conducted a gross and/or microscopic examination of the described specimens and rendered or confirmed the above diagnosis. End of Report [facility] 11/13/2015 11/18/2015 us Mehdi Oakes MD PATHOLOGY ORDERABLES Final Res ult [facility] [address] [place] [address] documented in this encounter Visit Diagnoses Not on filedocumented in this encounter Care Teams Butcher Fish Relationship Specialty Start Date End Date Akiko Benitez FNP [address] [place], [place] [address] PCP - General 08/07/12 05/17/20 documented as of this encounter
--- OUTSIDE RECORDS SUMMARY | 2024-06-07 00:43 | XMS_ITS | Encounter Summary ---
Author Organization [facility] Address [address] [place] [address] Care Team Providers Care Black Topper Name Role Phone Unknown, Provider Primary Care Provider Unava ilable Encounter Details Date Type Department Care Team (Late st Contact Info) Description 07/24/2012 Results Only [facility] - [facility] ([facility] [address] [place], [place] [phone] Glenn Benitez FNP [address] [facility] [place] [place] [id number] Social History Tobacco Use Types Packs/Day Years [...] Diagnosis Comments PAP TEST- RESULT ONLY Routine 07/24/2012 0:00 EDT documented in this encounter Results * PAP TEST- RESULT ONLY (07/24/2012 0:00 EDT) Pathology Report: CYTOPATHOLOGY REPORT Reports generated via electronic interface contain original data; however they are lacking the format of the original report. Caution should be taken when reading/interpreti ng unformatted reports. Name: ? DENISSE MONROY ? Accession #: ? [id number] : ? 1965 (Age: 47) ??F ?Collect Date: ? 07/24/2012 Location: ? [facility] ? Receive Date: ? 07/25/2012 Provider: ?GLENN BENITEZ CONSULTANT EDUCATION Copy to: ? Specimen/Source: ?Pap Test, Cervix/Endocervix, ThinPrep Imaging System with manual evaluation Last Menstrual Period: ? 07/05/12 ? SPECIMEN ADEQUACY ? Satisfactory for Evaluation - transformation zone component present GENERAL CATEGORIZATION ? Negative for Intraepithelial Lesion or Malignancy ? Document reviewed and electronically signed by: ? HAYLEE Valente(ASCP) ? Report Date: ??07/26/2012 13:15 End of Report [facility] 07/24/2012 07/25/2012 us Glenn Benitez CONSULTANT EDUCATION PATHOLOGY ORDERABLES Final Resul t [facility] [address] [place] [address] documented in this encounter Visit Diagnoses Not on filedocumented in this encounter Care Teams Black Topper Relationship Specialty Start Date End Date Unknown, Provider, PCP - General 04/04/11 08/06/12 documented as of this encounter
--- OUTSIDE RECORDS SUMMARY | 2024-06-07 00:43 | XMS_ITS | Encounter Summary ---
Author Organization [facility] Address [address] [place] [address] Care Team Providers Care Privacy Analyst Name Role Phone Unavailable Primary Care Provider Unavailabl e Encounter Details Date Type Department Care Team (Late st Contact Info) Description 11/14/2006 Results Only [facility] [address] [place] [address] Glenn Benitez FNP [address] [place], [place] [phone] Social History Tobacco Use Types Packs/Day Years [...] Procedure Name Priority Date/Time Associated Diagnosis Comments CYTOPATHOLOGY Routine 11/14/2006 0:00 EDT documented in this encounter Results * CYTOPATHOLOGY (11/14/2006 0:00 EDT) Pathology Report: CYTOPATHOLOGY REPORT Reports generated via electronic interface contain original data; however they are lacking the format of the original report. Caution should be taken when reading/interpreti ng unformatted reports. Name: ? DENISSE SHAY ? Accession #: ? [id number] : ? 1965 (Age: 41) ??F ?Collect Date: ? 11/14/2006 Location: ? [facility] ? Receive Date: ? 11/17/2006 Provider: ?GLENN BENITEZ FREEZER PERSON Copy to: ? Specimen/Source: ?ThinPrep Pap Test, Cervix/Endocervix, processed on [employer] (TMG) ThinPrep Imaging System, with manual evaluation Last Menstrual Period: ? 10/28/06 Other: ? HPVA - HPV testing requested if ASC-US on the current ThinPrep Pap test. ? SPECIMEN ADEQUACY ? Satisfactory for Evaluation - transformation zone component present GENERAL CATEGORIZATION ? Negative for Intraepithelial Lesion or Malignancy ? Document reviewed and electronically signed by: ? MOUNIKA Chandra(ASCP) ? Report Date: ??11/24/2006 08:18 End of Report [facility] 11/14/2006 11/17/2006 us Glenn MOCTEZUMAP PATHOLOGY ORDERABLES Final Resul t [facility] [address] [place] [address] documented in this encounter Visit Diagnoses Not on filedocumented in this encounter
--- OUTSIDE RECORDS SUMMARY | 2024-06-07 00:43 | XMS_ITS | Encounter Summary ---
Author Organization [facility] Address [address] [place] [address] Care Team Providers Care Software Installation Engineer Name Role Phone Unavailable Primary Care Provider Unavailabl e Encounter Details Date Type Department Care Team (Late st Contact Info) Description 03/04/2003 Results Only [address] [phone] Monae Larose MD Social History Tobacco Use Types Packs/Day Years [...] Priority Date/Time Associated Diagnosis Comments CYTOPATHOLOGY Routine 03/04/2003 0:00 EDT documented in this encounter Results * CYTOPATHOLOGY (03/04/2003 0:00 EDT) Pathology Report: CYTOPATHOLOGY REPORT Reports generated via electronic interface contain original data; however they are lacking the format of the original report. Caution should be taken when reading/interpreti ng unformatted reports. Name: ? DENISSE SHAY ? Accession #: ? [id number] : ? 1965 (Age: 38) ??F ?Collect Date: ? 03/04/2003 Location: ? [facility] ? Receive Date: ? 03/06/2003 Provider: ?MONAE LAROSE MD Copy to: ? Specimen/Source: ?ThinPrep Pap Test, Endocervix Last Menstrual Period: ? 02/27/03 Other: ? HPVA - HPV testing requested if ASC-US on the current ThinPrep Pap test. ? SPECIMEN ADEQUACY ? Satisfactory for Evaluation - transformation zone component present GENERAL CATEGORIZATION ? Negative for Intraepithelial Lesion or Malignancy ? Document reviewed and electronically signed by: ? MOUNIKA Chandra(ASCP) ? Report Date: ??03/11/2003 14:21 End of Report [facility] 03/04/2003 03/06/2003 us Monae Larose MD PATHOLOGY ORDERABLES Final Resul t [facility] [address] [place] [address] documented in this encounter Visit Diagnoses Not on filedocumented in this encounter
--- OUTSIDE RECORDS SUMMARY | 2024-06-07 00:43 | XMS_ITS | Encounter Summary ---
Author Organization [facility] Address [address] [place] [address] Care Team Providers Care Parboiler Name Role Phone Akiko Benitez IVORY Primary Care Provider [phone] Encounter Details Date Type Department Care Team (Late st Contact Info) Description 06/25/2018 Results Only [facility] [phone] Nilton Ravi MD [address] [place] [address] [address] [place], [place] [phone] Social History Tobacco Use Types Packs/Day Years [...] Procedure Name Priority Date/Time Associated Diagnosis Comments SURGICAL PATHOLOGY Routine 06/25/2018 19 :44 EST documented in this encounter Results * SURGICAL PATHOLOGY (06/25/2018 19:44 EST) Pathology Report: SURGICAL PATHOLOGY REPORT Reports generated via electronic interface contain original data; however they are lacking the format of the original report. Caution should be taken when reading/interpret ing unformatted reports. Name: ? DENISSE MONROY ? Accession #: ? [id number] ? : ? 1965 (Age: 53) ??F ? Collect Date: ? 06/25/2018 ? Location: ? [facility] ? Receive Date: ? 06/25/2018 ? Provider: NILTON RAVI MD Copy to: MEHDI MELTON MD ? Final Pathologic Diagnosis: A. colon, descending, polyp, biopsy: - ??Fragments of sessile serrated adenoma. B. colon, sigmoid, polyp, biopsy: - ??Fragment of hyperplastic polyp. Document reviewed and electronically signed by: SOLO DAVIES MD Report ??Date: 06/29/2018 18:22 By the signature above, the attending physician certifies that he/she has personally conducted a gross and/or microscopic examination of the described specimens and rendered or confirmed the above diagnosis. Specimen(s) Received: A. ??Descending colon polyp at 25 cm B. ??Sigmoid polyp at 15 cm Clinical History: Screening for colon cancer Gross Description: A. ?Received in formalin labelled with proper patient identification (initials D, D) and descending colon polyp at 25 cm are four fragments of brown tissue measuring 0.3 x 0.3 x 0.2 cm. The specimens are entirely submitted in A1. B. ?Received in formalin labelled with proper patient identification (initials D, D) and sigmoid polyp is a single fragment of pink tissue (0.2 x 0.2 x 0.2 cm). The specimen is entirely submitted in B1. KATY Woods (ASCP) 06/26/2018 7:40 AM End of Report [facility] 06/25/2018 19:4 4 EST 06/25/2018 19:44 EST us Nilton Ravi MD PATHOLOGY ORDERABLES Fin al Result [facility] [address] [place] [address] documented in this encounter Visit Diagnoses Not on filedocumented in this encounter Care Teams Parboiler Relationship Specialty Start Date End Date Akiko Benitez FNP [address] [place] [address] PCP - General 08/07/12 05/17/20 documented as of this encounter
--- OUTSIDE RECORDS SUMMARY | 2024-06-07 00:43 | XMS_ITS | Encounter Summary ---
Author Organization [facility] Address [address] [place] [address] Care Team Providers Care Clean Rice Grader And Reel Tender Name Role Phone Unknown, Provider Primary Care Provider Glenn Melton Primary Care Provider [phone] Encounter Details Date Type Department Care Team (Late st Contact Info) Description 08/06/2012 Results Only [facility] Laboratory Services - [facility] ([facility] [address] [place] [phone] Lisandro Orantes MD [address] [place] [address] Social History Tobacco Use Types Packs/Day Years [...] Date/Time Associated Diagnosis Comments SURGICAL PATHOLOGY Routine 08/06/2012 10 :07 EDT documented in this encounter Results * SURGICAL PATHOLOGY (08/06/2012 10:07 EDT) Pathology Report: SURGICAL PATHOLOGY REPORT Reports generated via electronic interface contain original data; however they are lacking the format of the original report. Caution should be taken when reading/interpreti ng unformatted reports. Name: ? DENISSE MONROY ? Accession #: ? [id number] ? : ? 1965 (Age: 47) ??F ? Collect Date: ? 08/06/2012 ? Location: ? [facility] ? Receive Date: ? 08/07/2012 ? Provider: LISANDRO ORANTES MD Copy to: GLENN BENITEZ DIGITAL MEDIA DESIGNER ? Final Pathologic Diagnosis: ? Breast, right, 12 o'clock, 2 cm from nipple, needle core biopsy: 1. ??Nodular fibrocystic changes including: ?- Adenosis. ?? See comment. ? - Interlobular fibrosis. ? - Focal microcyst formation. Comment: ? Deeper levels have been examined. ??(Dr. Gallagher)/[facility] Document reviewed and electronically signed by: ZENA GALLAGHER MD Report ??Date: 08/10/2012 10:33 By the signature above, the attending physician certifies that he/she has personally conducted a gross and/or microscopic examination of the described specimens and rendered or confirmed the above diagnosis. Specimen(s) Received: ? Rt breast 12 o'clock, 2 cm from nipple core Clinical History: ? Category IV mammo Gross Description: ? Received in formalin labelled Dudas, Denisse and right breast biopsy is a landon-white, cylindrical soft tissue fragment measuring 0.7 cm in length and 0.1 cm in diameter. ??The specimen is entirely submitted as (1). ??(Ruby Pfeiffer/benson ? Time removed from patient: ??08/06/12 at 15:30 hours Time in formalin: ??08/06/12 at 15:30 hours Time out of formalin: ??08/07/12 at 19:00 hours ?? End of Report [facility] 08/06/2012 10:0 7 EDT 08/07/2012 10:07 EDT us Lisandro Orantes MD PATHOLOGY ORDERABLES Final Result Performing Organization Address City/State/[facility] Co de Phone Number [facility] [address] [place] [address] documented in this encounter Visit Diagnoses Not on filedocumented in this encounter Care Teams Clean Rice Grader And Reel Tender Relationship Specialty Start Date End Date Unknown, Provider, PCP - General 04/04/11 08/06/12 Glenn Benitez FNP [address] [place] [address] PCP - General 08/07/12 05/17/20 documented as of this encounter
--- OUTSIDE RECORDS SUMMARY | 2024-06-07 00:43 | XMS_ITS | Encounter Summary ---
Author Organization [facility] Address [address] [place] [address] Care Team Providers Care Land Surveyor Assistant Name Role Phone Savana Oakes MD Primary Care Provider Encounter Details Date Type Department Care Team (Late st Contact Info) Description 11/10/2020 Lab Requisition [facility] Pathology & Laboratory Medicine - [address] [address] Cecile Vogel [address] [place] [address] [place] [phone] Encounter for other general examination Social History Tobacco Use Types Packs/Day Years Used Date Smoking Tobacco: Never Assessed Interpersonal Safety Answer Date Record ed Physically Hurt Never 12/15/2019 Verbally Threaten Not on file 12/15/2019 Comments Unknown Sex and Gender Information Value Date Recorded Sex Assigned at Not on file Legal Sex Female 17:41 EST Gender Identity Not on file Sexual Orientation Not on file documented as of this encounter Plan of Treatment Not on file documented as of this encounter Procedures Procedure Name Priority Date/Time Associated Diagnosis Comments PAP TEST Today 11/09/2020 8:30 EDT Encounter for other general examination HPV DNA DETECTION WITH GENOTYPING, PCR Today 11/09/2020 8:30 EDT Encounter for other general examination documented in this encounter Results * HUMAN PAPILLOMAVIRUS (HPV) DETECTION-HIGH RISK TYPES (11/09/2020 8:30 EDT) HPV other High Risk types, PCR Negative Negative [facility]2020 [facility] Comment:No E6 or E7 mRNA is detected from HPV types 16,18,31,33,35,39,45,51,52,56,58,59,66, and 68 by oil derrick operator mediated amplification. Papanicolaou smear specimen (specimen) CERVIX UTERI STRUCTURE / Unknown 11/09/2020 8:30 EDT 11/17/2020 13:31 EDT Cecile Vogel MICROBIOLOGY - GENERAL ORDERABLE S Final Result [facility] [address] [place] [address] * PAP TEST (11/09/2020 8:30 EDT) Specimens A. Cervix and/or Endocervix , ThinPrep Imaging System with Manual Evaluation 11/19/2020 16:47 [facility] Specimen Adequacy Satisfactory for Evaluation - transformation zone component present 11/19/2020 16:47 [facility] General Categorization Negative for intraepithelial lesion or malignancy 11/19/2020 16:47 [facility] Descriptive Diagnosis Reactive cellular changes associated with inflammation present (includes repair). 11/19/2020 16:47 [facility] Attestation By the signature below, the attending physician certifies that they have personally conducted a gross and/or microscopic examination of the described specimens and rendered or confirmed the above diagnosis. 11/19/2020 16:47 [facility] at 1647 Clinical History See below 11/20/19 16:47 [facility] HPV The result for the Human Papillomavirus (HPV) Detection-High Risk Types is Negative. No E6 or E7 mRNA is detected from HPV types 16,18,31,33,35,39 ,45,51,52,56,58,5 9,66, and 68 by oil derrick operator mediated amplification.Lisbeth ting was performed on specimen [id number] and was resulted on 11/19/2020 1646 EDT by LAUREL, LAB INSTRUMENT RESULTS IN 11/19/2020 16:47 EDT [facility] Performing Lab [facility] 11/19/2020 16:47 EDT [facility] Scanned Images 11/19/2020 16:47 EDT [facility] Papanicolaou smear specimen (specimen) CERVIX UTERI STRUCTURE / Unknown 11/09/2020 8:30 EDT 11/10/2020 13:07 EDT Cecile Vogel PATHOLOGY ORDERABLES Final Resul t [facility] [address] [place] [address] documented in this encounter Visit Diagnoses Diagnosis Encounter for other general examination documented in this encounter Care Teams Land Surveyor Assistant Relationship Specialty Start Date End Date Savana Oakes MD [address] [place] [phone] PCP - General 05/18/20 documented as of this encounter
--- OUTSIDE RECORDS SUMMARY | 2024-06-07 00:43 | XMS_ITS | Encounter Summary ---
Author Organization [facility] Address [address] [place] [address] Care Team Providers Care Stem Sizer Name Role Phone Savana Oakes MD Primary Care Provider [phone] Encounter Details Date Type Department Care Team (Late st Contact Info) Description 04/18/2023 Lab Requisition [facility] Pathology & Laboratory Medicine - [address] [address] Cecile Vogel [address] [place] [address] [place] [phone] Encounter for other general examination Social History [...] Date/Time Associated Diagnosis Comments PAP TEST Today 04/14/2023 9:00 EST Encounter for other general examination HPV DNA DETECTION WITH GENOTYPING, PCR Today 04/14/2023 9:00 EST Encounter for other general examination documented in this encounter Results * HUMAN PAPILLOMAVIRUS (HPV) DETECTION-HIGH RISK TYPES (04/14/2023 9:00 EST) HPV other High Risk types, PCR Negative Negative 04/25/2023 17:03 [facility] Comment:No E6 or E7 mRNA is detected from HPV types 16,18,31,33,35,39,45,51,52,56,58,59,66, and 68 by butadiene converter utility operator mediated amplification. Pap Test CERVIX UTERI STRUCTURE / Unknown 04/14/2023 9:00 EST 04/25/2023 10:26 EST Cecile Vogel MICROBIOLOGY - GENERAL ORDERABLE S Final Result [facility] [address] [place] [address] * PAP TEST (04/14/2023 9:00 EST) Specimens A. Cervix and/or Endocervix , ThinPrep Imaging System with Manual Evaluation 04/25/2023 17:03 [facility] Specimen Adequacy Satisfactory for Evaluation - transformation zone component present 04/25/2023 17:03 [facility] General Categorization Negative for intraepithelial lesion or malignancy 04/25/2023 17:03 [facility] Descriptive Diagnosis Reactive cellular changes associated with inflammation present (includes repair). 04/25/2023 17:03 [facility] Attestation By the signature below, the attending physician certifies that they have personally conducted a gross and/or microscopic examination of the described specimens and rendered or confirmed the above diagnosis. 04/25/2023 17:03 [facility] at 1703 Clinical History See below 04/25/20 23 17:03 [facility] HPV The result for the Human Papillomavirus (HPV) Detection-High Risk Types is Negative. No E6 or E7 mRNA is detected from HPV types 16,18,31,33,35,39 ,45,51,52,56,58,5 9,66, and 68 by butadiene converter utility operator mediated amplification.Lisbeth ting was performed on specimen [id number] and was resulted on 04/25/2023 1703 EST by LAUREL, LAB INSTRUMENT RESULTS IN 04/25/2023 17:03 EST [facility] Performing Lab [facility] 04/25/2023 17:03 EST [facility] Scanned Images 04/25/2023 17:03 EST [facility] Pap Test CERVIX UTERI STRUCTURE / Unknown 04/14/2023 9:00 EST 04/18/2023 9:41 EST [facility] hospital PATHOLOGY ORDERABLES Final Resul t [facility] [address] [place] [address] documented in this encounter Visit Diagnoses Diagnosis Encounter for other general examination documented in this encounter Care Teams Stem Sizer Relationship Specialty Start Date End Date Savana Oakes MD [address] [place] [address] PCP - General 05/18/20 documented as of this encounter
--- OUTSIDE RECORDS SUMMARY | 2024-06-07 00:43 | XMS_ITS | Encounter Summary ---
Author Organization [facility] Address [address] [place] [address] Care Team Providers Care Transportation Dispatch Manager Name Role Phone Unavailable Primary Care Provider Unavailabl e Encounter Details Date Type Department Care Team (Late st Contact Info) Description 03/09/2005 Results Only [address] [phone] Monae Larose MD Social History Tobacco Use [...] Priority Date/Time Associated Diagnosis Comments CYTOPATHOLOGY Routine 03/09/2005 0:00 EDT documented in this encounter Results * CYTOPATHOLOGY (03/09/2005 0:00 EDT) Pathology Report: CYTOPATHOLOGY REPORT Reports generated via electronic interface contain original data; however they are lacking the format of the original report. Caution should be taken when reading/interpreti ng unformatted reports. Name: ? DENISSE SHAY ? Accession #: ? [id number] : ? 1965 (Age: 40) ??F ?Collect Date: ? 03/09/2005 Location: ? [facility] ? Receive Date: ? 03/11/2005 Provider: ?MONAE LAROSE MD Copy to: ? Specimen/Source: ?ThinPrep Pap Test, Endocervix, processed on [employer] ThinPrep Imaging System, with manual evaluation Last Menstrual Period: ? 02/11/05 Other: ? HPVA - HPV testing requested if ASC-US on the current ThinPrep Pap test. ? SPECIMEN ADEQUACY ? Satisfactory for Evaluation - transformation zone component present GENERAL CATEGORIZATION ? Negative for Intraepithelial Lesion or Malignancy ? Document reviewed and electronically signed by: ? MOUNIKA Chadnra(ASCP) ? Report Date: ??03/17/2005 14:33 End of Report [facility] 03/09/2005 03/11/2005 us Monae Larose MD PATHOLOGY ORDERABLES Final Resul t [facility] [address] [place] [address] documented in this encounter Visit Diagnoses Not on filedocumented in this encounter
--- OUTSIDE RECORDS SUMMARY | 2024-06-07 00:43 | XMS_ITS | Encounter Summary ---
Author Organization [facility] Address [address] [place] [address] Care Team Providers Care Java Engineer Name Role Phone Akiko Benitez IVORY Primary Care Provider [phone] Savana Oakes MD Primary Care Provider [phone] Encounter Details Date Type Department Care Team (Latest Contact Info) Description 04/20/2020 Lab Requisition [facility] Pathology & Laboratory Medicine - [facility] [address] [place] [address] Savana Oakes MD [address] [place] [phone] Encounter for general adult medical examination without abnormal findings; Encounter for screening for malignant neoplasm of cervix; Encounter for gynecological examination (general) (routine) without abnormal findings Social History Tobacco Use Types Packs/Day Years [...] Date/Time Associated Diagnosis Comments PAP TEST Today 04/16/2020 15:30 EST Encounter for general adult medical examination without abnormal findings Encounter for screening for malignant neoplasm of cervix Encounter for gynecological examination (general) (routine) without abnormal findings documented in this encounter Results * PAP TEST (04/16/2020 15:30 EST) Specimens A. Cervix and/or Endocervix , ThinPrep Imaging System with Manual Evaluation 04/24/2020 14:33 [facility] Specimen Adequacy Satisfactory for Evaluation - transformation zone component present 04/24/2020 14:33 [facility] General Categorization Epithelial Cell Abnormality 04/24/2020 14:33 [facility] Descriptive Diagnosis Squamous Cell Abnormality - High grade squamous intraepithelial lesion (HSIL). 04/24/2020 14:33 [facility] Educational Comments [facility] recommends following ASCCP's 2012 Updated Consensus Guidelines for the Management of Abnormal Cervical Cancer Screening Tests and Cancer Precursors (JLGTD, 2013; 17(5):S1-S27). Consensus guidelines are available online at www.asccp.org. 04/24/2020 14:33 [facility] Attestation By the signature below, the attending physician certifies that they have personally conducted a gross and/or microscopic examination of the described specimens and rendered or confirmed the above diagnosis. 04/24/2020 14:33 [facility] at 1433 Clinical History See below 04/24/20 20 14:33 [facility] Performing Lab [facility] 04/24/2020 14:33 [facility] Scanned Images 04/24/2020 14:33 [facility] Papanicolaou smear specimen (specimen) CERVIX UTERI STRUCTURE / Unknown 04/16/2020 15:30 EST 04/20/2020 14:52 EST us Savana Oakes MD PATHOLOGY ORDERABLES Final Res ult [facility] [address] [place] [address] documented in this encounter Visit Diagnoses Diagnosis Encounter for general adult medical examination without abnormal findings Unspecified general medical examination Encounter for screening for malignant neoplasm of cervix Screening for malignant neoplasm of the cervix Encounter for gynecological examination (general) (routine) without abnormal findings documented in this encounter Care Teams Java Engineer Relationship Specialty Start Date End Date Akiko Benitez FNP [address] [place] [address] PCP - General 08/07/12 05/17/20 Savana Oakes MD [address] [place] [address] PCP - General 05/18/20 documented as of this encounter
--- OUTSIDE RECORDS SUMMARY | 2024-06-07 00:43 | XMS_ITS | Encounter Summary ---
Author Organization [facility] Address [address] [place] [address] Care Team Providers Care Bunghole Borer Name Role Phone Unknown, Provider Primary Care Provider Unava ilable Encounter Details Date Type Department Care Team (Late st Contact Info) Description 03/31/2011 Results Only [facility] Laboratory Services - [facility] ([facility] [address] [place], [place] [phone] Glenn Benitez FNP [address] [place], [place] [phone] Social History Tobacco Use Types Packs/Day Years [...] Diagnosis Comments PAP TEST- RESULT ONLY Routine 03/31/2011 0:00 EST documented in this encounter Results * PAP TEST- RESULT ONLY (03/31/2011 0:00 EST) Pathology Report: CYTOPATHOLOGY REPORT Reports generated via electronic interface contain original data; however they are lacking the format of the original report. Caution should be taken when reading/interpreti ng unformatted reports. Name: ? DENISSE MONROY ? Accession #: ? [id number] : ? 1965 (Age: 46) ??F ?Collect Date: ? 03/31/2011 Location: ? [facility] ? Receive Date: ? 04/04/2011 Provider: ?GLENN BENITEZ CHEF & OWNER Copy to: ? Specimen/Source: ?Pap Test, Cervix/Endocervix, ThinPrep Imaging System with manual evaluation Last Menstrual Period: ? 03/08/11 ? SPECIMEN ADEQUACY ? Satisfactory for Evaluation - transformation zone component present GENERAL CATEGORIZATION ? Negative for Intraepithelial Lesion or Malignancy INTERPRETATION ? Reactive cellular changes associated with inflammation present (includes repair). ? Document reviewed and electronically signed by: ? MARA BOOTHE MD ? Report Date: ??04/12/2011 10:34 End of Report [facility] 03/31/2011 04/04/2011 us Glenn Benitez CHEF & OWNER PATHOLOGY ORDERABLES Final Resul t [facility] [address] [place] [address] documented in this encounter Visit Diagnoses Not on filedocumented in this encounter Care Teams Bunghole Borer Relationship Specialty Start Date End Date Unknown, Provider, PCP - General 04/04/11 08/06/12 documented as of this encounter
--- OUTSIDE RECORDS SUMMARY | 2024-06-07 00:43 | XMS_ITS | Clinical Summary ---
Author Organization [facility] Address [address] [place] [address] Care Team Providers Care Dumper Bailer Operator Name Role Phone Savana Oakes MD Primary Care Provider [phone] Encounters Date Type Department Care Team Description 04/16/2024 Lab Requisition [facility] Pathology & Laboratory Medicine - [facility] [address] [place] [address] Cecile Vogel Encounter for other general examination from Last 3 Months Social History Tobacco Use Types Packs/Day Years Used Date Smoking Tobacco: Never Assessed Interpersonal Safety Answer Date Record ed Physically Hurt Never 12/15/2019 Verbally Threaten Not on file 12/15/2019 Comments Unknown Sex and Gender Information Value Date Recorded Sex Assigned at Not on file Legal Sex Female 17:41 EST Gender Identity Not on file Sexual Orientation Not on file Plan of Treatment Health Maintenance Due Date Last Done Comments Hepatitis C Screen 1965 Hepatitis B Vaccine (1 of 3 - 19+ 3-dose series) 01/25 COVID-19 Vaccine ( season) 2024 Procedures Procedure Name Priority Date/Time Associated Diagnosis Comments PAP TEST Today 04/15/2024 8:20 EST Encounter for other general examination HPV DNA DETECTION WITH GENOTYPING, PCR Today 04/15/2024 8:20 EST Encounter for other general examination from Last 3 Months Results * PAP TEST (04/15/2024 8:20 EST) Specimens A. Cervix and/or Endocervix , ThinPrep Imaging System with Manual Evaluation 04/19/2024 14:17 [facility] Specimen Adequacy Satisfactory for Evaluation - transformation zone component present 04/19/2024 14:17 [facility] General Categorization Negative for intraepithelial lesion or malignancy 04/19/2024 14:17 [facility] Attestation . 04/19/2024 14:17 [facility] at 1416 Clinical History SEE BELOW 04/19/20 14:17 [facility] Performing Lab [facility] 04/19/2024 14:17 [facility] Scanned Images 04/19/2024 14:17 [facility] HPV High Risk type 16, PCR Negative 04/19/2024 14:17 [facility] HPV High Risk type 18, PCR Negative 04/19/2024 14:17 [facility] HPV Other High Risk Types, PCR Negative The following Other High Risk HPV types were not detected: 31,33, 35, 39, 45, 51, 52, 56, 58, 59, 66 and 68. 04/19/2024 14:17 [facility] Pap Test CERVIX UTERI STRUCTURE / Unknown 04/15/2024 8:20 EST 04/16/2024 13:40 EST [facility] PATHOLOGY ORDERABLES Final Resul t Performing Organization Address City/State/[facility] Co de Phone Number [facility] [address] [place] [address] * HPV DNA DETECTION WITH GENOTYPING, PCR (04/15/2024 8:20 EST) HPV High Risk type 16, PCR Negative Negative 04/19/2024 14:17 [facility] HPV High Risk type 18, PCR Negative Negative 04/19/2024 14:17 [facility] HPV other High Risk types, PCR Negative Negative 04/19/2024 14:17 [facility] Comment: The following Other High Risk HPV types were not detected: ??31,33, 35, 39, 45, 51, 52, 56, 58, 59, 66 and 68. Pap Test CERVIX UTERI STRUCTURE / Unknown 04/15/2024 8:20 EST 04/18/2024 14:04 EST [facility] MICROBIOLOGY - GENERAL ORDERABLE S Final Result [facility] [address] [place] [address] from Last 3 Months Insurance * Guarantor: Denisse Ruiz Account Type Relation to Patient Date of Phone Billing Address Personal/Family Self 1965 [phone] [employer]Work) [address] [place] [address] [facility] * Guarantor: Denisse Ruiz Account Type Relation to Patient Date of Phone Billing Address Personal/Family Self 1965 [phone] [employer]) [address] [place] [address] * Guarantor: Denisse Ruiz Account Type Relation to Patient Date of Phone Billing Address Personal/Family Self 1965 [phone] [employer]Work) [address] [place] [address] * Guarantor: Denisse Ruiz Account Type Relation to Patient Date of Phone Billing Address Personal/Family Self 1965 [phone] [employer]Work) [address] [place] [address] * Guarantor: Denisse Ruiz Account Type Relation to Patient Date of Phone Billing Address Personal/Family Self 1965 [phone] [employer]) [address] [place] [address] Care Teams Dumper Bailer Operator Relationship Specialty Start Date End Date Savana Oakes MD [address] [place] [address] PCP - General 05/18/20
--- OUTSIDE RECORDS SUMMARY | 2024-06-07 00:43 | XMS_ITS | Encounter Summary ---
Author Organization [facility] Address [address] [place] [address] Care Team Providers Care Planner Intern Name Role Phone Savana Oakes MD Primary Care Provider [phone] Encounter Details Date Type Department Care Team (Late st Contact Info) Description 04/16/2024 Lab Requisition [facility] Pathology & Laboratory Medicine - [address] [address] Cecile Vogel [address] [place] [address] [place] [phone] Encounter for other general examination Social History [...] 8:20 EST Encounter for other general examination documented in this encounter Results * HPV DNA DETECTION WITH GENOTYPING, PCR (04/15/2024 8:20 EST) HPV High Risk type 16, PCR Negative Negative 04/19/2024 14:17 [facility] HPV High Risk type 18, PCR Negative Negative 04/19/2024 14:17 [facility] HPV other High Risk types, PCR Negative Negative 04/19/2024 14:17 [facility] Comment: The following Other High Risk HPV types were not detected: ??31,33, 35, 39, 45, 51, 52, 56, 58, 59, 66 and 68. Pap Test CERVIX UTERI STRUCTURE / Unknown 04/15/2024 8:20 EST 04/18/2024 14:04 EST Cecile Vogel MICROBIOLOGY - GENERAL ORDERABLE S Final Result [facility] [address] [place], [place] [id number] * PAP TEST (04/15/2024 8:20 EST) Specimens A. Cervix and/or Endocervix , ThinPrep Imaging System with Manual Evaluation 04/19/2024 14:17 [facility] Specimen Adequacy Satisfactory for Evaluation - transformation zone component present 04/19/2024 14:17 [facility] General Categorization Negative for intraepithelial lesion or malignancy 04/19/2024 14:17 [facility] Attestation . 04/19/2024 14:17 [facility] at 1416 Clinical History SEE BELOW 04/19/20 24 14:17 [facility] Performing Lab [facility] 04/19/2024 14:17 [facility] Scanned Images 04/19/2024 14:17 [facility] HPV High Risk type 16, PCR Negative 04/19/2024 14:17 [facility] HPV High Risk type 18, PCR Negative 04/19/2024 14:17 [facility] HPV Other High Risk Types, PCR Negative The following Other High Risk HPV types were not detected: 31,33, 35, 39, 45, 51, 52, 56, 58, 59, 66 and 68. 04/19/2024 14:17 EST [facility] Pap Test CERVIX UTERI STRUCTURE / Unknown 04/15/2024 8:20 EST 04/16/2024 13:40 EST Cecile Jaspreet PATHOLOGY ORDERABLES Final Resul t Performing Organization Address City/State/[facility] Co de Phone Number [facility] [address] [place] [address] documented in this encounter Visit Diagnoses Diagnosis Encounter for other general examination documented in this encounter Care Teams Planner Intern Relationship Specialty Start Date End Date Savana Oakes MD [address] [place] [address] PCP - General 05/18/20 documented as of this encounter
--- OUTSIDE RECORDS SUMMARY | 2024-06-07 00:43 | XMS_ITS | Encounter Summary ---
Author Organization [facility] Address [address] [place] [address] Care Team Providers Care Barrel Filler Name Role Phone Unavailable Primary Care Provider Unavailabl e Encounter Details Date Type Department Care Team (Late st Contact Info) Description 12/05/2001 Results Only [facility] - Maple conversion [address] [place] [address] Fredrick Rodrigues MD [address] [place], [place] [phone] Social History Tobacco Use Types Packs/Day Years [...] Priority Date/Time Associated Diagnosis Comments CYTOPATHOLOGY Routine 12/05/2001 0:00 EDT documented in this encounter Results * CYTOPATHOLOGY (12/05/2001 0:00 EDT) Pathology Report: CYTOPATHOLOGY REPORT Reports generated via electronic interface contain original data; however they are lacking the format of the original report. Caution should be taken when reading/interpreti ng unformatted reports. Name: ? DENISSE SHAY ? Accession #: ? [id number] : ? 1965 (Age: 36) ??F ?Collect Date: ? 12/05/2001 Location: ? [facility] ? Receive Date: ? 12/10/2001 Provider: ?FREDRICK RODRIGUES MD Copy to: ? Specimen/Source: ?ThinPrep Pap Test, Cervix/Endocervix Last Menstrual Period: ? 11/18/01 ? SPECIMEN ADEQUACY ? Satisfactory for Evaluation - transformation zone component present - scant squamous epithelial component secondary to excessive inflammation GENERAL CATEGORIZATION ? Negative for Intraepithelial Lesion or Malignancy ? Document reviewed and electronically signed by: ? MOUNIKA Chandra(ASCP) ? Report Date: ??12/14/2001 12:28 End of Report [facility] 12/05/2001 12/10/2001 us Fredrick Rodrigues MD PATHOLOGY ORDERABLES Final Resul t [facility] [address] [place] [address] documented in this encounter Visit Diagnoses Not on filedocumented in this encounter
--- OUTSIDE RECORDS SUMMARY | 2024-06-07 00:43 | XMS_ITS | Encounter Summary ---
Author Organization [facility] Address [address] [place] [address] Care Team Providers Care Die Turner Name Role Phone Glenn Benitez Primary Care Provider [phone] Encounter Details Date Type Department Care Team (Late st Contact Info) Description 09/30/2014 Results Only [facility] [phone] Glenn Benitez FNP [address] [place], [place] [id number] Social History Tobacco Use Types Packs/Day Years [...] Diagnosis Comments PAP TEST- RESULT ONLY Routine 09/30/2014 0:00 EDT documented in this encounter Results * PAP TEST- RESULT ONLY (09/30/2014 0:00 EDT) Pathology Report: CYTOPATHOLOGY REPORT Reports generated via electronic interface contain original data; however they are lacking the format of the original report. Caution should be taken when reading/interpret ing unformatted reports. Name: ? DENISSE MONROY ? Accession #: ? [id number] ? : ? 1965 (Age: 49) ??F ?Collect Date: ? 09/30/2014 ? Location: ? [facility] ? Receive Date: ? 10/02/2014 ? Provider: GLENN BENITEZ INTENSIVE CARE NURSE Copy to: ? Final Report SPECIMEN ADEQUACY ? Satisfactory for Evaluation - transformation zone component present GENERAL CATEGORIZATION ? Epithelial Cell Abnormality INTERPRETATION ? Squamous Cell Abnormality - Atypical squamous cells, undetermined significance (ASC-US). Endometrial cells present in a woman equal to or greater than age 40. EDUCATIONAL NOTES/RECOMMENDAT IONS ? [facility] recommends following ASCCP's 2012 Updated Consensus Guidelines for the Management of Abnormal Cervical Cancer Screening Tests and Cancer Precursors (JLGTD, 2013; 17(5):S1-S27). ??Consensus guidelines are available online at www.asccp.org. Benign appearing endometrial cells on Pap tests are usually a normal finding in women with regular menstrual cycles, especially if the Pap test was collected during the first half of the menstrual cycle. There is data showing that endometrial cells on Pap tests may be associated with endometrial/uteri ne abnormalities in post menopausal women or in perimenopausal women with abnormal bleeding. There is limited data on the significance of benign endometrial cells in post menopausal women on HRT. ??Clinical correlation is recommended. Note: ??The Pap test is not an accurate test for the screening of endometrial lesions and should not be used as a follow up in patients with clinical suspicion of endometrial pathology. Last Menstrual Period: 09/25/14 Specimen/Source: ??Pap Test, Cervix/Endocervix , ThinPrep Imaging System with manual evaluation Document reviewed and electronically signed by: ? BLANCA BECKFORD MD ? Report ??Date: 10/13/2014 15:21 HPV with Pap Test ? Date Ordered: ? 10/13/2014 ? Status: ?? Signed Out ?Date Complete: ? 10/15/2014 ? By: ??System Interface ? Date Reported: ? 10/15/2014 ? Interpretation RESULT: Negative for HPV. No E6 or E7 mRNA is detected from HPV types 16,18,31,33,35, 39,45,51,52,56,58 ,59,66, and 68 by cut off operator scorer mediated amplification. Comments Document reviewed and electronically signed by: ? System Interface ? Report date: 10/15/2014 By the signature above, the attending physician certifies that he/she has personally conducted a gross and/or microscopic examination of the described specimens and rendered or confirmed the above diagnosis. End of Report [facility] 09/30/2014 10/02/2014 us Glenn DODSON PATHOLOGY ORDERABLES Final Resul t [facility] [address] [place] [address] documented in this encounter Visit Diagnoses Not on filedocumented in this encounter Care Teams Die Turner Relationship Specialty Start Date End Date Glenn Benitez FNP [address] [place], [place] [phone] PCP - General 08/07/12 05/17/20 documented as of this encounter
--- OUTSIDE RECORDS SUMMARY | 2024-06-07 00:43 | XMS_ITS | Encounter Summary ---
Author Organization [facility] Address [address] [place] [address] Care Team Providers Care Surgical Territory Manager Name Role Phone Glenn Benitez IVORY Primary Care Provider [phone] Encounter Details Date Type Department Care Team (Late st Contact Info) Description 11/03/2014 Results Only [facility] [phone] Perla Lujan MD [address] [place] [address] Social History Tobacco Use Types Packs/Day Years [...] Date/Time Associated Diagnosis Comments SURGICAL PATHOLOGY Routine 11/03/2014 18 :24 EDT documented in this encounter Results * SURGICAL PATHOLOGY (11/03/2014 18:24 EDT) Pathology Report: SURGICAL PATHOLOGY REPORT Reports generated via electronic interface contain original data; however they are lacking the format of the original report. Caution should be taken when reading/interpret ing unformatted reports. Name: ? DENISSE MONROY ? Accession #: ? [id number] ? : ? 1965 (Age: 49) ??F ? Collect Date: ? 11/03/2014 ? Location: ? [facility] ? Receive Date: ? 11/03/2014 ? Provider: PERLA LUJAN MD Copy to: GLENN DODSON ? Final Pathologic Diagnosis: ENDOMETRIUM, BIOPSY: - ??Menstrual-type endometrium. Document reviewed and electronically signed by: KWAN MEYERS MD Report ??Date: 11/05/2014 16:15 By the signature above, the attending physician certifies that he/she has personally conducted a gross and/or microscopic examination of the described specimens and rendered or confirmed the above diagnosis. Specimen(s) Received: Endometrial bx Clinical History: Polymenorrhea, postcoital bleeding with nl Pap (ASC-US (-) HR HPV 08/2014) Gross Description: ? Received in formalin labelled with proper patient identification (initials D, D) and endometrium is an aggregate of clotted blood, blood tinged mucus and red-brown, tissue fragments (3.0 x 2.5 x 0.4 cm). Submitted in toto in blocks 1-4. Bryanna Cai 11/04/2014 09:00 AM End of Report [facility] 11/03/2014 18:2 4 EDT 11/03/2014 18:24 EDT us Perla Lujan MD PATHOLOGY ORDERABLES Final Resu lt [facility] [address] [place] [address] documented in this encounter Visit Diagnoses Not on filedocumented in this encounter Care Teams Surgical Territory Manager Relationship Specialty Start Date End Date Glenn Benitez FNP [address] [place] [address] PCP - General 08/07/12 05/17/20 documented as of this encounter
--- OUTSIDE RECORDS SUMMARY | 2024-06-07 00:43 | XMS_ITS | Encounter Summary ---
Author Organization [facility] Address [address] [place] [address] Care Team Providers Care Trucking Manager Name Role Phone Unavailable Primary Care Provider Unavailabl e Encounter Details Date Type Department Care Team (Late st Contact Info) Description 04/07/2008 Before PRISM Converted Visit (Maple) [facility] - Maple conversion [address] [place] [address] Glenn Benitez FNP [address] [place], [place] [phone] Social History Tobacco Use Types Packs/Day Years [...] Priority Date/Time Associated Diagnosis Comments CYTOPATHOLOGY Routine 04/07/2008 0:00 EST documented in this encounter Results * CYTOPATHOLOGY (04/07/2008 0:00 EST) Pathology Report: CYTOPATHOLOGY REPORT ? Reports generated via electronic interface contain original data; ? however they are lacking the format of the original report. ? Caution should be taken when reading/interpreti ng unformatted reports. ? Name: ? DENISSE SHAY ? Accession #: ? [id number] ? : ? 1965 (Age: 43) ??F ?Collect Date: ? 04/07/2008 ? Location: ? [facility] ? Receive Date: ? 04/09/2008 ? Provider: ?GLENN DODSON ? Copy to: ? Specimen/Source: ?Pap Test, Source Not Provided, ThinPrep Imaging System ?? with manual evaluation ? Last Menstrual Period: ? 11/21/08 ? SPECIMEN ADEQUACY ? Satisfactory for Evaluation ? - transformation zone component present ? - scant squamous epithelial component secondary to excessive blood ? GENERAL CATEGORIZATION ? Negative for Intraepithelial Lesion or Malignancy ? Document reviewed and electronically signed by: ? Luis Cheatham, CT(ASCP) ? Report Date: ??04/15/2008 07:45 ? End of Report ? [facility] 04/07/2008 04/09/2008 us Glenn Benitez PAPER GOODS MACHINE SET UP OPERATOR PATHOLOGY ORDERABLES Final Resul t [facility] [address] [place] [address] documented in this encounter Visit Diagnoses Not on filedocumented in this encounter
--- OUTSIDE RECORDS SUMMARY | 2024-06-07 00:43 | XMS_ITS | Referral Summary ---
Author Organization [facility] Address [address] [place] [address] Care Team Providers Care Back Tender Pulp Drier Name Role Phone Savana Oakes MD Primary Care Provider [phone] Encounters Date Type Department Care Team Description 04/16/2024 Lab Requisition [facility] Pathology & Laboratory Medicine - [facility] [address] [place] [address] Cecile Vogel Encounter for other general examination [...] Orientation Not on file Plan of Treatment Not on file Procedures Procedure Name Priority Date/Time Associated Diagnosis Comments PAP TEST Today 04/15/2024 8:20 EST Encounter for other general examination HPV DNA DETECTION WITH GENOTYPING, PCR Today 04/15/2024 8:20 EST Encounter for other general examination from Last 3 Months Results * PAP TEST (04/15/2024 8:20 EST) Specimens A. Cervix and/or Endocervix , ThinPrep Imaging System with Manual Evaluation 04/19/2024 14:17 EST [facility] Specimen Adequacy Satisfactory for Evaluation - transformation zone component present 04/19/2024 14:17 EST [facility] General Categorization Negative for intraepithelial lesion or malignancy 04/19/2024 14:17 [facility] Attestation . 04/19/2024 14:17 [facility] at 1416 Clinical History SEE BELOW 04/19/20 14:17 [facility] Performing Lab [facility] 04/19/2024 14:17 [facility] Scanned Images 04/19/2024 14:17 [facility] HPV High Risk type 16, PCR Negative 04/19/2024 14:17 [facility] HPV High Risk type 18, PCR Negative 04/19/2024 14:17 [facility] HPV Other High Risk Types, PCR Negative The following Other High Risk HPV types were not detected: 31,33, 35, 39, 45, 51, 52, 56, 58, 59, 66 and 68. 04/19/2024 14:17 [facility] Pap Test CERVIX UTERI STRUCTURE / Unknown 04/15/2024 8:20 EST 04/16/2024 13:40 EST [facility] PATHOLOGY ORDERABLES Final Resul t [facility] [address] [place] [address] * HPV DNA DETECTION WITH GENOTYPING, PCR (04/15/2024 8:20 EST) HPV High Risk type 16, PCR Negative Negative 04/19/2024 14:17 [facility] HPV High Risk type 18, PCR Negative Negative 04/19/2024 14:17 [facility] HPV other High Risk types, PCR Negative Negative 04/19/2024 14:17 [facility] Comment: The following Other High Risk HPV types were not detected: ??31,33, 35, 39, 45, 51, 52, 56, 58, 59, 66 and 68. Pap Test CERVIX UTERI STRUCTURE / Unknown 04/15/2024 8:20 EST 04/18/2024 14:04 EST Cecile Vogel MICROBIOLOGY - GENERAL ORDERABLE S Final Result [facility] [address] [place], [place] [address] from Last 3 Months Insurance * Guarantor: Denisse Monroy Account Type Relation to Patient Date of Phone Billing Address Personal/Family Self 1965 [phone] [employer]Work) [address] [place] [address] [facility] * Guarantor: Denisse Monroy Account Type Relation to Patient Date of Phone Billing Address Personal/Family Self 1965 [phone] [employer]) [address] [place] [address] * Guarantor: Denisse Monroy Account Type Relation to Patient Date of Phone Billing Address Personal/Family Self 1965 [phone] [employer]) [address] [place] [address] * Guarantor: Denisse Monroy Account Type Relation to Patient Date of Phone Billing Address Personal/Family Self 1965 [phone] [employer]Work) [address] [place] [address] * Guarantor: Denisse Monroy Account Type Relation to Patient Date of Phone Billing Address Personal/Family Self 1965 [phone] [employer]) [address] [place] [address] Care Teams Back Tender Pulp Drier Relationship Specialty Start Date End Date Savana Oakes MD [address] [place] [address] PCP - General 05/18/20
--- OUTSIDE RECORDS SUMMARY | 2024-06-07 00:43 | XMS_ITS | Encounter Summary ---
Author Organization [facility] Address [address] [place] [address] Care Team Providers Care Quality Assurance Technician Name Role Phone Unavailable Primary Care Provider Unavailabl e Encounter Details Date Type Department Care Team (Late st Contact Info) Description 11/11/1999 Results Only [facility] - Maple conversion [address] [place] [address] [place], [place] [address] Social History Tobacco Use Types Packs/Day Years [...] Priority Date/Time Associated Diagnosis Comments CYTOPATHOLOGY Routine 11/11/1999 0:00 EDT documented in this encounter Results * CYTOPATHOLOGY (11/11/1999 0:00 EDT) Pathology Report: CYTOPATHOLOGY REPORT Reports generated via electronic interface contain original data; however they are lacking the format of the original report. Caution should be taken when reading/interpreti ng unformatted reports. Name: ? DENISSE SHAY ? Accession #: ? [id number] : ? 1965 (Age: 34) ??F ?Collect Date: ? 11/11/1999 Location: ? [facility] ? Receive Date: ? 11/17/1999 Provider: ?CAMELIA BROWN CNM Copy to: ? Specimen/Source: ?ThinPrep Pap Test, Cervix/Endocervix Last Menstrual Period: ? 12/17/98 Menstrual/Pregnanc y Status: ? Post ? SPECIMEN ADEQUACY ? Satisfactory for evaluation. GENERAL CATEGORIZATION ? Within Normal Limits ? Document reviewed and electronically signed by: ? Esthela Suresh, HAYLEE(ASCP) ? Report Date: ??11/18/1999 15:09 End of Report [facility] 11/11/1999 11/17/1999 Camelia Brown CNM PATHOLOGY ORDERABLES Final Res ult [facility] [address] [place] [address] documented in this encounter Visit Diagnoses Not on filedocumented in this encounter
--- OUTSIDE RECORDS SUMMARY | 2024-06-07 00:43 | XMS_ITS | Encounter Summary ---
Author Organization [facility] Address [address] [place] [address] Care Team Providers Care Motor Electrician Name Role Phone Akiko Benitez Primary Care Provider [phone] Encounter Details Date Type Department Care Team (Latest Contact Info) Description 11/03/2014 16:08 EDT - 11/03/2014 23:59 EDT Hospital Encounter [address] [address] Unknown, Provider, MD Discharge Disposition: Home or Self Care Social History Tobacco Use Types Packs/Day Years Used Date Smoking Tobacco: Never Assessed Comments Unknown Sex and Gender Information Value Date Recorded Sex Assigned at Not on file Legal Sex Female 17:41 EST Gender Identity Not on file Sexual Orientation Not on file documented as of this encounter Discharge Disposition Disposition Code Departure Means Destination Home or Self Nursing Home documented in this encounter Plan of Treatment Not on file documented as of this encounter Visit Diagnoses Not on filedocumented in this encounter Care Teams Motor Electrician Relationship Specialty Start Date End Date Akiko Benitez FNP [address] [place] [address] PCP - General 08/07/12 05/17/20 documented as of this encounter
--- OUTSIDE RECORDS SUMMARY | 2024-06-07 00:43 | XMS_ITS | Encounter Summary ---
Author Organization [facility] Address [address] [place] [address] Care Team Providers Care Auger Mill Operator Name Role Phone Savana Oakes MD Primary Care Provider Encounter Details Date Type Department Care Team (Late st Contact Info) Description 02/07/2022 Lab Requisition [facility] Pathology & Laboratory Medicine - [address] [address] Cecile Vogel [address] [place] [address] [place] [phone] Encounter for other general examination Social History [...] Date/Time Associated Diagnosis Comments PAP TEST Today 02/04/2022 11:10 EDT Encounter for other general examination HPV DNA DETECTION WITH GENOTYPING, PCR Today 02/04/2022 11:10 EDT Encounter for other general examination documented in this encounter Results * HUMAN PAPILLOMAVIRUS (HPV) DETECTION-HIGH RISK TYPES (02/04/2022 11:10 EDT) HPV other High Risk types, PCR Negative Negative 02/18/2022 22:58 [facility] Comment:No E6 or E7 mRNA is detected from HPV types 16,18,31,33,35,39,45,51,52,56,58,59,66, and 68 by construction plant operator mediated amplification. Papanicolaou smear specimen (specimen) CERVIX UTERI STRUCTURE / Unknown 02/04/2022 11:10 EDT 02/17/2022 10:54 EDT us Cecile Vogel MICROBIOLOGY - GENERAL ORDERABLE S Final Result [facility] [address] [place] [address] * PAP TEST (02/04/2022 11:10 EDT) Specimens A. Cervix and/or Endocervix , ThinPrep Imaging System with Manual Evaluation 02/18/2022 22:58 [facility] Specimen Adequacy Satisfactory for Evaluation - transformation zone component present 02/18/2022 22:58 [facility] General Categorization Negative for intraepithelial lesion or malignancy 02/18/2022 22:58 [facility] Descriptive Diagnosis Reactive cellular changes associated with inflammation present (includes repair). 02/18/2022 22:58 [facility] Attestation By the signature below, the attending physician certifies that they have personally conducted a gross and/or microscopic examination of the described specimens and rendered or confirmed the above diagnosis. 02/18/2022 22:58 [facility] at 2258 Clinical History See below 02/19/20 22:58 [facility] HPV The result for the Human Papillomavirus (HPV) Detection-High Risk Types is Negative. No E6 or E7 mRNA is detected from HPV types 16,18,31,33,35,39 ,45,51,52,56,58,5 9,66, and 68 by construction plant operator mediated amplification.Lisbeth ting was performed on specimen [id number] and was resulted on 02/18/2022 2233 EDT by LAUREL, LAB INSTRUMENT RESULTS IN 02/18/2022 22:58 EDT [facility] Performing Lab [facility] 02/18/2022 22:58 EDT [facility] Scanned Images 02/18/2022 22:58 EDT [facility] Papanicolaou smear specimen (specimen) CERVIX UTERI STRUCTURE / Unknown 02/04/2022 11:10 EDT 02/07/2022 11:01 EDT Cecile Vogel PATHOLOGY ORDERABLES Final Resul t [facility] [address] [place] [address] documented in this encounter Visit Diagnoses Diagnosis Encounter for other general examination documented in this encounter Care Teams Auger Mill Operator Relationship Specialty Start Date End Date Savana Oakes MD [address] [place] [phone] PCP - General 05/18/20 documented as of this encounter
--- OUTSIDE RECORDS SUMMARY | 2024-06-07 00:43 | XMS_ITS | Encounter Summary ---
Author Organization [facility] Address [address] [place] [address] Care Team Providers Care Neurocritical Care Physician Name Role Phone Akiko Benitez Primary Care Provider [phone] Encounter Details Date Type Department Care Team (Latest Contact Info) Description 09/30/2014 8:29 EDT - 09/30/2014 23:59 EDT Hospital Encounter [address] [address] Unknown, Provider, MD Discharge Disposition: Home or [...] Code Departure Means Destination Home or Self Prison documented in this encounter Plan of Treatment Not on file documented as of this encounter Visit Diagnoses Not on filedocumented in this encounter Care Teams Neurocritical Care Physician Relationship Specialty Start Date End Date Akiko Benitez FNP [address] [place] [address] PCP - General 08/07/12 05/17/20 documented as of this encounter
--- OUTSIDE RECORDS SUMMARY | 2024-06-07 00:43 | XMS_ITS | Encounter Summary ---
Author Organization [facility] Address [address] [place] [address] Care Team Providers Care Slide Maker Name Role Phone Savana Oakes MD Primary Care Provider [phone] Encounter Details Date Type Department Care Team (Late st Contact Info) Description 02/09/2023 Lab Requisition [facility] Pathology & Laboratory Medicine - [facility] [address] [place], [place] [id number] Jitendra Elliott MD [address] [place] [address], [address] [place], [place] [id number] Encounter for screening for malignant neoplasm of colon Social History Tobacco Use Types Packs/Day Years [...] Priority Date/Time Associated Diagnosis Comments SURGICAL PATHOLOGY Today 02/09/2023 11 :13 EDT Encounter for screening for malignant neoplasm of colon documented in this encounter Results * SURGICAL PATHOLOGY (02/09/2023 11:13 EDT) Note to Patient The following pathology results have been interpreted by your pathologist and may be available to you before your health provider has had the opportunity to review them. Please allow time for your provider to receive these results and explore management options, if applicable. 02/13/2023 10:38 [facility] Final Diagnosis A. RECTUM, POLYPS X2, BIOPSY: - Hyperplastic polyps. 02/13/2023 10:38 [facility] Attestation By the signature below, the attending physician certifies that they have 1) personally conducted a gross and/or microscopic examination of the described specimen(s), and/or personally interpreted the results of laboratory testing of the described specimen(s), and 2) personally rendered or confirmed the above diagnosis. 02/13/2023 10:38 [facility] at 1038 Clinical History Not listed 02/13/2023 10:38 [facility] Gross Description A. Received in formalin labelled with proper patient identification (initials D, D) and rectal polyps x2 are two conley tissue fragments, 0.3 x 0.3 x 0.2 cm and 0.5 x 0.3 x 0.2 cm. Entirely submitted in A1. KATY RAO(ASCP) 02/10/2023 7:23 02/13/2023 10:38 [facility] Performing Lab [facility] 02/13/2023 10:38 [facility] Scanned Images 02/13/2023 10:38 [facility] Tissue SPECIMEN FROM RECTUM / Unknown 02/09/2023 11:13 EDT 02/09/2023 18:11 EDT us Jitendra Elliott MD PATHOLOGY ORDERABLES Final Resu lt [facility] [address] [place] [address] documented in this encounter Visit Diagnoses Diagnosis Encounter for screening for malignant neoplasm of colon Special screening for malignant neoplasms, colon documented in this encounter Care Teams Slide Maker Relationship Specialty Start Date End Date Savana Oakes MD [address] [place] [phone] PCP - General 05/18/20 documented as of this encounter
--- OUTSIDE RECORDS SUMMARY | 2024-06-07 00:43 | XMS_ITS | Encounter Summary ---
Author Organization [facility] Address [address] [place] [address] Care Team Providers Care Coater Name Role Phone Savana Oakes MD Primary Care Provider [phone] Encounter Details Date Type Department Care Team (Late st Contact Info) Description 11/09/[address] [facility] Pathology & Laboratory Medicine - [address] [address] Cecile Vogel [address] [place] [address] [place] [phone] Encounter for other general examination Social History [...] Date/Time Associated Diagnosis Comments SURGICAL PATHOLOGY Today 11/09/2020 8: 30 EDT Encounter for other general examination documented in this encounter Results * SURGICAL PATHOLOGY (11/09/2020 8:30 EDT) Final Diagnosis A. ENDOCERVIX, CURETTINGS: - Fragments of benign endocervix. 11/11/2020 12:16 EDT [facility] Attestation By the signature below, the attending physician certifies that they have 1) personally conducted a gross and/or microscopic examination of the described specimen(s), and/or personally interpreted the results of laboratory testing of the described specimen(s), and 2) personally rendered or confirmed the above diagnosis. 11/11/2020 12:16 T [facility] at 1216 Clinical History (+) HSIL Pap with HR HPV 11/11/2020 12:16 EDT [facility] Gross Description A. Received in formalin labelled with proper patient identification (initials D, D) and ECC is an aggregate of conley-white mucus (1.4 x 0.9 x 0.2 cm). Entirely submitted in A1. KATY RECIO(ASCP) 11/09/2020 16:47 11/11/2020 12:16 EDT [facility] Performing Lab [facility] 11/11/2020 12:16 EDT [facility] Scanned Images 11/11/2020 12:16 T [facility] Tissue ENTIRE ENDOCERVIX / Unknown 11/09/2020 8:30 EDT 11/09/2020 16:33 EDT Cecile Vogel PATHOLOGY ORDERABLES Final Resul t [facility] [address] [place] [address] documented in this encounter Visit Diagnoses Diagnosis Encounter for other general examination documented in this encounter Care Teams Coater Relationship Specialty Start Date End Date Savana Oakes MD [address] [place] [phone] PCP - General 05/18/20 documented as of this encounter
--- OUTSIDE RECORDS SUMMARY | 2024-06-07 00:43 | XMS_ITS | Encounter Summary ---
Author Organization [facility] Address [address] [place] [address] Care Team Providers Care Durable Medical Equipment Technician Name Role Phone Savana Oakes MD Primary Care Provider [phone] Encounter Details Date Type Department Care Team (Late st Contact Info) Description 05/18/2020 Lab Requisition [facility] Pathology & Laboratory Medicine - [address] [address] Cecile Vogel [address] [place] [address] [place] [phone] Encounter for other general examination Social History [...] Date/Time Associated Diagnosis Comments SURGICAL PATHOLOGY Today 05/18/2020 8: 30 EST Encounter for other general examination documented in this encounter Results * SURGICAL PATHOLOGY (05/18/2020 8:30 EST) Final Diagnosis A. CERVIX, 6 O'CLOCK, BIOPSY: - Benign mature squamous epithelium. See comment. B. ENDOCERVIX, CURETTAGE: - Predominantly mucus with scant benign endocervical cells. 05/20/2020 13:03 [facility] Diagnosis Comment Deeper sections have been examined of part A and B. The referring pap ([id number]) was reviewed in conjunction with the current material by cytopathologist Dr Juanita Covington and the diagnosis of HSIL confirmed. The HSIL cells seen on the pap are not present in the current biopsy material. 05/20/2020 13:03 [facility] Attestation There was significant resident/fellow involvement in the diagnostic evaluation of this case. By the signature below, the attending physician certifies that they have personally conducted a gross and/or microscopic examination of the described specimens and rendered or confirmed the above diagnosis. 05/20/2020 13:03 [facility] at 1303 Clinical History HSIL Pap 05/20/2020 13:03 [facility] Gross Description A. Received in formalin labelled with proper patient identification (initials D, D) and cervix 6 o'clock is a single fragment of conley tissue (0.4 x 0.3 x 0.3 cm). the specimen is submitted in A1. B. Received in formalin labelled with proper patient identification (initials D, D) and ECC is an aggregate of cloudy mucin (0.6 x 0.5 x 0.4 cm). The specimen is submitted entirely in B1. KATY TREJO(ASCP) 05/18/2020 16:24 05/20/2020 13:03 [facility] Resident/Sean w: Ellis Dominguez MD 05/20/2020 13:03 [facility] Performing Lab [facility] 13:03 [facility] Scanned Images 05/20/2020 13:03 [facility] Tissue ENTIRE ENDOCERVIX / Unknown 05/18/2020 8:30 EST 05/18/2020 16:12 EST Tissue specimen (specimen) ENDOCERVICAL STRUCTURE / Unknown 05/18/2020 8:30 EST 05/18/2020 16:12 EST Cecile Vogel PATHOLOGY ORDERABLES Final Resul t [facility] [address] [place] [address] documented in this encounter Visit Diagnoses Diagnosis Encounter for other general examination documented in this encounter Care Teams Durable Medical Equipment Technician Relationship Specialty Start Date End Date Savana Oakes MD [address] [place] [phone] PCP - General 05/18/20 documented as of this encounter
--- OUTSIDE RECORDS SUMMARY | 2024-06-07 00:43 | XMS_ITS | Encounter Summary ---
Author Organization [facility] Address [address] [place] [address] Care Team Providers Care Durable Medical Equipment Technician Name Role Phone Akiko Benitez Primary Care Provider [phone] Encounter Details Date Type Department Care Team (Latest Contact Info) Description 06/25/2018 17:09 EST - 06/25/2018 23:59 EST Hospital Encounter [address] [address] Unknown, Provider, MD Discharge Disposition: Home or [...] Code Departure Means Destination Home or Self [facility]pc documented in this encounter Plan of Treatment Not on file documented as of this encounter Visit Diagnoses Not on filedocumented in this encounter Care Teams Durable Medical Equipment Technician Relationship Specialty Start Date End Date Akiko Benitez FNP [address] [place] [address] PCP - General 08/07/12 05/17/20 documented as of this encounter
--- OUTSIDE RECORDS SUMMARY | 2024-06-07 00:43 | XMS_ITS | Encounter Summary ---
Author Organization [facility] Address [address] [place] [address] Care Team Providers Care Middle School Counselor Name Role Phone Unavailable Primary Care Provider Unavailabl e Encounter Details Date Type Department Care Team (Late st Contact Info) Description 11/21/2000 Results Only [facility] - Maple conversion [address] [place] [address] Milka Ybarra CNM [address] [place], [place] [address] Social History Tobacco Use Types Packs/Day Years [...] Priority Date/Time Associated Diagnosis Comments CYTOPATHOLOGY Routine 11/21/2000 0:00 EDT documented in this encounter Results * CYTOPATHOLOGY (11/21/2000 0:00 EDT) Pathology Report: CYTOPATHOLOGY REPORT Reports generated via electronic interface contain original data; however they are lacking the format of the original report. Caution should be taken when reading/interpreti ng unformatted reports. Name: ? DENISSE SHAY ? Accession #: ? [id number] : ? 1965 (Age: 35) ??F ?Collect Date: ? 11/21/2000 Location: ? [facility] ? Receive Date: ? 11/22/2000 Provider: ?MILKA YBARRA CNM Copy to: ? Specimen/Source: ?ThinPrep Pap Test, Cervix/Endocervix Last Menstrual Period: ? 11/04/00 ? SPECIMEN ADEQUACY ? Satisfactory for evaluation. GENERAL CATEGORIZATION ? Within Normal Limits ? Document reviewed and electronically signed by: ? HAYLEE Montemayor(ASCP) ? Report Date: ??11/23/2000 13:29 End of Report [facility]AN[facility] KENN[facility] 11/21/2000 11/22/2000 us Milka Ybarra CNM PATHOLOGY ORDERABLES Final Resul t [facility] [address] [place] [address] documented in this encounter Visit Diagnoses Not on filedocumented in this encounter
--- NOTE | 2024-06-07 08:00 | DI.MAMMO_ITS ---
Exam(s) MAMMO SCREENING EXAM: MAMMO SCREENING CLINICAL HISTORY: screening. TECHNIQUE: Bilateral full field digital CC and MLO mammographic images were obtained with 3D tomosyn thesis and utilizing computer aided detection (CAD). COMPARISON: Prior mammograms were reviewed. FINDINGS: There has been no significant change in the appearance and distribution of the fibroglandular tissue. No new findings in the immediate vicinity of a biopsy marker clip at 12 o'clock position the right br east. There are no new spiculated masses nor malignant appearing microcalcification groups. There is no significant architectural distortion nor skin thickening-retraction. IMPRESSION: No radiographic evidence of malignancy. BI-RADS Category 1 - Negative Breast Density - Category C - Heterogeneously dense Breast density Category C or D implies that the patient has dense breast tissue. Dense breast tissue can make it harder to find cancer on a mammogram. Dense breast tissue is also associated with an incr eased risk of breast cancer. This information about the result of the mammogram report was provided to the patient to raise their awareness. Use this report when you speak with the patient about their risks for breast cancer, which includes their family history. At that time, you may recommend additional screening tests (Ultrasoun d or MRI) as these tests may add significant information. A negative radiographic report should not delay biopsy if a dominant or clinically suspicious mass is present. Up to ten percent of cancers are not identified on mammography. A negative report may reinforce clinical impression. Adenosis and dense breasts may obscure an underlying neoplasm. False positive reports average 6 to 10%. Patient will receive a letter notifying them of these results.
== END 2024-06-07 01:02 ==
LOC: DI 00:42
PROVIDERS: PCP Family Medicine; Visit Provider Obstetrics & Gynecology
DX: Z12.31 Encounter for screening mammogram for malignant neoplasm of breast (principal); R92.333 Mammographic heterogeneous density, bilateral breasts
CPT/HCPCS: 77063; 77067

== ENCOUNTER 2024-11-13 21:35 | Outpatient (REF) | payer OTHER, SELFPAY ==
[2024-11-13 15:27] LABS: ALT 26 U/L (14-59); AST 19 U/L (15-37); Albumin 4.0 g/dL (3.4-5.0); Alkaline Phosphatase 84 U/L (46-116); Anion Gap 6.2 mmol/L (3-11); BUN 13 mg/dL (7-18); Bilirubin, Total 0.4 mg/dL (0.2-1.0); CO2 28.8 mmol/L (21.0-32.0); Calcium 9.4 mg/dL (8.5-10.1); Calculated LDL 134 mg/dL (<100); Chloride 102 mmol/L (98-107); Cholesterol 225 mg/dL (<200); Estimated GFR 100.81 (mL/min/1.73m2); Glucose 96 mg/dL (74-106); HDL Cholesterol 77 mg/dL (>or=50); Potassium 5.4 mmol/L (3.5-5.1); Sodium 137 mmol/L (136-145); Total Protein 7.2 g/dL (6.4-8.2); Triglyceride 70 mg/dL (<150); Vitamin D 25 Total 33 ng/mL (30-100)
== END 2024-11-13 21:36 | disposition home or self-care (01) ==
LOC: NCHCN 21:35
PROVIDERS: PCP Family Medicine; Visit Provider Family Medicine
DX: E55.9 Vitamin D deficiency, unspecified (principal); Z00.00 Encounter for general adult medical examination without abnormal findings
CPT/HCPCS: 80053; 80061; 82306